=== PATIENT | male | born 1940 | race African-American/Black ===

== ENCOUNTER 2017-11-06 15:20 | Inpatient (IN) | payer MEDICARE, MEDICAID ==
[2017-11-06] VITALS (8 sets, daily range): BP systolic 137–159; BP diastolic 76–87
[~2017-11-06] VITALS: Ht 170.2 cm; Wt 73.3 kg
[~2017-11-06 15:20] MED LIST: HYDR25TA9 PO
--- NOTE | 2017-11-06 15:38 | RAD ---
CT of the head without contrast, 11/06/2017: History: Possible stroke, facial droop Comparison is made to a study from 06/19/2017. There is moderate cerebral atrophy. There are moderate patchy lucencies in the deep white matter bilaterally compatible with chronic ischemic change. There is a tiny focus of increased density in the left frontal deep white matter which is unchanged and is compatible with a nonspecific calcification. The ventricles are mildly enlarged on a compensatory basis. There is no shift of the midline structures. There is no evidence of acute intracranial hemorrhage or mass effect. IMPRESSION: 1. Chronic findings as described above. 2. No acute intracranial abnormality is detected.. Note: The findings were called to personnel in the [facility] ER at 3:34 PM on 11/06/2017. PQRS Compliance Statement: One or more of the following individualized dose reduction techniques were utilized for this examination: 1. Automated exposure control 2. Adjustment of the mA and/or kV according to patient size 3. Use of iterative reconstruction technique
--- NOTE | 2017-11-06 15:38 | EKG ---
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
[2017-11-06] MEDS ORDERED: IOHEXOL 300 MG/ML 100ML VIAL. IV ONE (15:45)
[2017-11-06] MEDS ORDERED: CONTRAST GIVEN MC PRN (16:00)
[2017-11-06 16:05] LABS: BASO # 0.1 x10^3/uL (0.0-0.2); BASO % 1 % (0-3); EOS % 3 % (0-3); HEMATOCRIT 34.6 % (39.0-53.0); HEMOGLOBIN 10.9 g/dL (13.0-17.5); LYMPH # 1.6 x10^3/uL (1.0-4.8); LYMPH % 22 % (24-48); MEAN CORPUSCULAR HEMOGLOBIN 27 pg (25-35); MEAN CORPUSCULAR HGB CONC 32 g/dL (31-37); MEAN CORPUSCULAR VOLUME 84 fL (79-100); MONO % 11 % (0-9); NEUT % 64 % (31-73); PLATELET COUNT 316 x10^3/uL (140-400); RED BLOOD COUNT 4.11 x10^6/uL (4.30-5.70); RED CELL DISTRIBUTION WIDTH 19.4 % (11.5-14.5); WHITE BLOOD COUNT 7.3 x10^3/uL (4.0-11.0)
[2017-11-06 16:15] LABS: INR 1.2 (0.8-1.1)
[2017-11-06 16:16] LABS: CALCIUM 9.2 mg/dL (8.5-10.1); CREATININE 0.9 mg/dL (0.7-1.3); GFR 99.3; POTASSIUM 4.1 mmol/L (3.5-5.1)
--- NOTE | 2017-11-06 16:22 | RAD ---
Single view of the Chest 11/06/2017 5:22 PM Indication: Cerebrovascular accident Comparison: None Findings: The patient is rotated. Allowing for this there is no focal consolidation or infiltrate identified. There is no effusion or pneumothorax. Heart size appears to be within normal limits. No osseous abnormality is identified. Impression: No evidence of acute cardiopulmonary process.
--- NOTE | 2017-11-06 17:22 | PHYS DOC ---
Past Medical History Past Medical History: Diabetes-Type II, High Cholesterol, Hypertension, Seizure , Stroke Past Surgical History: Other Additional Past Surgical Histo: j tube, trach Alcohol Use: None Drug Use: None Adult General Chief Complaint Chief Complaint: ALTERED MENTAL STATUS HPI HPI Patient is a 77 year old M who presents with strokelike symptoms. Patient was transferred as a stroke alert. Approximately one hour prior to arrival the patient had a possible seizure with some dysarthria and left-sided weakness. Patient had a previous stroke with residual left-sided weakness. Daughter was present at bedside witnessed the seizure. Upon arrival the patient was post ictal with some dysarthria. Initial NIH score was 23. Review of Systems Review of Systems ROS is limited secondary to patient's clinical condition All other systems were reviewed and found to be within normal limits, except as documented in this note. Current Medications Current Medications Current Medications Medications (Trade) Dose Ordered Sig/Cathy Start Time Stop Time Status Last Admin Dose Admin Info (Do NOT chart on this entry -- for MONITORING) 1 each PRN DAILY PRN 11/06/17 16:00 11/08/17 15:59 Iohexol (Omnipaque 300 Mg/ml) 75 ml 1X ONCE 11/06/17 15:45 11/06/17 15:48 DC Allergies Allergies Allergies Coded Allergies Type Severity Reaction Last Updated Verified No Known Drug Allergies 06/11/16 No Physical Exam Physical Exam GEN.: Moderate distress. Alert and oriented x1 HEENT: Head is normocephalic, atraumatic, pupils were equal and reactive bilaterally, extraocular muscles are intact bilaterally NECK: Supple. LUNGS: CTAB. HEART: RRR, S1, S2 present. Peripheral pulses intact ABDOMEN: Soft, nontender. Positive bowel sounds. EXTREMITIES: Without any cyanosis 3/5 muscle strength to the proximal and distal left upper extremity and lower extremity NEUROLOGIC: Dysarthria, no identifiable facial droop noted PSYCHIATRIC: Confused SKIN: No ulcerations Current Patient Data Vital Signs Vital Signs Date Time Temp Pulse Resp B/P (MAP) Pulse Ox O2 Delivery O2 Flow Rate FiO2 11/06/17 15:20 98.5 80 20 179/95 (123) 97 Room Air 98.5 Lab Values Laboratory Tests Test 11/06/17 15:50 White Blood Count 7.3 x10^3/uL (4.0-11.0) Red Blood Count 4.11 x10^6/uL (4.30-5.70) L Hemoglobin 10.9 g/dL (13.0-17.5) L Hematocrit 34.6 % (39.0-53.0) L Mean Corpuscular Volume 84 fL (79-100) Mean Corpuscular Hemoglobin 27 pg (25-35) Mean Corpuscular Hemoglobin Concent 32 g/dL (31-37) Red Cell Distribution Width 19.4 % (11.5-14.5) H Platelet Count 316 x10^3/uL (140-400) Neutrophils (%) (Auto) 64 % (31-73) Lymphocytes (%) (Auto) 22 % (24-48) L Monocytes (%) (Auto) 11 % (0-9) H Eosinophils (%) (Auto) 3 % (0-3) Basophils (%) (Auto) 1 % (0-3) Neutrophils # (Auto) 4.6 x10^3uL (1.8-7.7) Lymphocytes # (Auto) 1.6 x10^3/uL (1.0-4.8) Monocytes # (Auto) 0.8 x10^3/uL (0.0-1.1) Eosinophils # (Auto) 0.2 x10^3/uL (0.0-0.7) Basophils # (Auto) 0.1 x10^3/uL (0.0-0.2) Prothrombin Time 14.0 SEC (11.7-14.0) Prothrombin Time INR 1.2 (0.8-1.1) H PTT 29 SEC (24-38) Sodium Level 139 mmol/L (136-145) Potassium Level 4.1 mmol/L (3.5-5.1) Chloride Level 103 mmol/L (98-107) Carbon Dioxide Level 27 mmol/L (21-32) Anion Gap 9 (6-14) Blood Urea Nitrogen 25 mg/dL (8-26) Creatinine 0.9 mg/dL (0.7-1.3) Estimated GFR (Cockcroft-Gault) 99.3 Glucose Level 103 mg/dL (70-99) H Calcium Level 9.2 mg/dL (8.5-10.1) Laboratory Tests 11/06/17 15:50 Laboratory Tests 11/06/17 15:50 EKG EKG 1530: EKG shows normal sinus rhythm rate of 82 no STEMI[] Radiology/Procedures Radiology/Procedures CT scan of the head NAD CX-ray NAD[] Course & Med Decision Making Course & Med Decision Making Pertinent Labs and Imaging studies reviewed. (See chart for details) ED course: Patient was seen and examined emergency room stroke alert was called out and stroke workup was done Radiologist called report of CT the head unremarkable no acute findings 1550: Discussed CC/HP/PMH with Dr. MUELLER and recommends explaining the pros and cons to the patient and family and allowed and decide if TPA is needed 1605: I had a long discussion with the family in regards to the pros and cons of TPA in the criteria for TPA after discussion the family is decided not to give TPA understanding all risks, family wanted the patient transferred to since he was just recently discharged from their 1615: Discussed CC/HP/PMH with Dr. Clark and recommends no TPA and to call through the transfer line for general neurology acceptance 1621: Discussed CC/HP/PMH with transfer center and will call back 1645: Discussed CC/HP/PMH with Dr. Solis and recommends increasing the Keppra to 1500 mg twice a day and discharge the patient home, did not believe the patient needed to be transferred to 1650: Discussed this plan with the patient and family who are very upset and did not think the patient needs to be transferred home 1706: Discussed CC/HP/PMH with Dr. Pickard and recommends admit [] [] Patient's actual PCP is 1722: Discussed CC/HP/PMH with Dr. Ahumada and recommends admit [] MDM: After reviewing the chart, CC/HPI/PMH, physical exam, [lab results], [ radiological results], I believe the patient had a seizure with Raymond's paralysis and do not believe the patient had an acute stroke. Patient will be admitted for further evaluation and management and will obtain an MRI. [] Dragon Disclaimer Dragon Disclaimer This electronic medical record was generated, in whole or in part, using a voice recognition dictation system. Departure Departure Impression: Primary Impression: Seizure Additional Impression: Raymond's paralysis (postepileptic) Disposition: 09 ADMITTED INPATIENT Admitting Physician: Gumaro Ahumada Condition: IMPROVED Referrals: GUMARO AHUMADA MD (PCP) Problem Qualifiers PAULETTE MATHUR DO Nov 06, 2017 17:22
[2017-11-06] MEDS ORDERED: ONDANSETRON PF 4 MG/2 ML VIAL. IV PRN (18:00)
[2017-11-06] MEDS ORDERED: fentaNYL PF VIAL 100 MCG/2 ML VIAL IV PRN (18:00)
[2017-11-06] MEDS ORDERED: ASPIRIN 325 MG TABLET PO ONE (18:45)
--- NOTE | 2017-11-06 19:01 | PDOC2 ---
NEUROLOGY CONSULT Date of Admission Date of Admission DATE: 11/06/17 TIME: 18:41 Reason for Consult Reason for Consult: IMPRESSION: Seizure with Raymond's palsy vs acute CVA. Metabolic encephalopathy. Hx of seizure. Hx of seizure and CVA in 04/09 with left side weakness per his daughter. DM HTN HLD RECOMMENDATIONS/PLAN: Brain MRI w/wo contrast plus seizure protocol. EEG Resume his AEDs. Discussed with his family by ER physician in all detail about deferential diagnoses about CVA syndrome and seizure. TPA for possible acute CVA, but family did not want to TPA. Treat medical diseases. OT/PT HISTORY OF THE PRESENT ILLNESS: 77-y-old AA male patient with above medical diseases had a seizure and CVA symptoms in 04/09 per his daughter. He was seen in [facility] and was thought seizure, but then found CVA. We do not have his medical records at the present time from . His daughter stated that he has been treated for his seizure since. He has about 1 seizure a month or two. He had another seizure observed by his daughter today described as LOC, eyes open and fixed with shaking movements in hands. His left side was weakness. He was brought to the ER of [facility]. TPA was offered due to his symptoms of speech difficulties, MS changes, increased weakness in left side, but his family declined. PAST MEDICAL HISTORY: Diabetes-Type II, High Cholesterol, Hypertension, Seizure, Stroke. PAST SURGERY HISTORY: J tube placement. ALLERGY: Reviewed. MEDICATIONS: Refer to [facility] FAMILY HISTORY: Non contributory. SOCIAL HISTORY: Lives in nursing care facility now. Denies current smoking, drinking, and illicit drug use. REVIEW OF SYSTEMS: Constitutional: No malnutrition, weight loss, cachexia. Head: No traumatic brain or head injury. Skin: No edema, or rash. Ear: No infection. Eyes: No vision loss or color blindness. Nose: No bleeding or purulent discharges. Hearing: Hearing decrease. Neck: No injury. Cardiac: HTN, HLD. Pulmonary: No COPD. GI: No GI ulcer, GI bleeding. Urinary/genital: UTI. Endocrinologic: Diabetes Mellitus. Skeletomuscular: left side weakness. Neurological: see Seizure with CVA in 04/09 per his daughter. Psychiatric: Denies drug use/abuse. Otherwise, not -cutfv review of systems. PHYSICAL EXAMINATION: General appearance is in acute distress. HEENT: Normocephalic and nontraumatic. Eyes, nose, ears, and throat are unremarkable. Neck is supple. No lymphadenopathy. No crepitus. Cardiovascular: S1, S2, regular rate and rhythm. Pulmonary: Clear to auscultation bilaterally. Abdomen: Bowel sounds are positive. Abdomen is soft, nontender, and nondistended. Extremities: No rash, lesions, or edema. No restriction of range of motion NEUROLOGICAL EXAMINATION: Awake. Confusion. Not oriented to time, but knows place and person. PERRL. EOMI. CN: no acute focal findings. Muscle tone: left UE increased, the rest is within normal. Muscle strength: 4 left UE, 5- the rest. DTR: 1-2 Plantar reflex: Neutral response bilaterally Gait: not examined in bed. Sensory exam: no acute abnormal findings. No acute cerebellar signs elicited. F-T-N test fine. Current Medications Current Medications Current Medications Iohexol (Omnipaque 300 Mg/ml) 75 ml 1X ONCE IV ; Start 11/06/17 at 15:45; Stop 11/06/17 at 15:48; Status DC Info (Do NOT chart on this entry -- for MONITORING) 1 each PRN DAILY PRN MC SEE COMMENTS; Start 11/06/17 at 16:00; Stop 11/08/17 at 15:59 Ondansetron HCl (Zofran) 4 mg PRN Q8HRS PRN IV NAUSEA/VOMITING; Start at 18:00; Stop 11/07/17 at 17:59 Fentanyl Citrate (Fentanyl 2ml Vial) 50 mcg PRN Q1HR PRN IV PAIN; Start at 18:00; Stop 11/07/17 at 17:59 Active Scripts Active Hydrochlorothiazide Tablet (Hydrochlorothiazide) 25 Mg Tablet 1 Tab PO DAILY Allergies Allergies: Coded Allergies: No Known Drug Allergies (Unverified , 06/11/16) Vitals VITALS Vital Signs Date Time Temp Pulse Resp B/P (MAP) Pulse Ox O2 Delivery O2 Flow Rate FiO2 11/06/17 17:54 79 97 11/06/17 15:20 98.5 20 179/95 (123) Room Air 98.5 Labs Labs Laboratory Tests Test 11/06/17 15:50 White Blood Count 7.3 x10^3/uL (4.0-11.0) Red Blood Count 4.11 x10^6/uL (4.30-5.70) Hemoglobin 10.9 g/dL (13.0-17.5) Hematocrit 34.6 % (39.0-53.0) Mean Corpuscular Volume 84 fL (79-100) Mean Corpuscular Hemoglobin 27 pg (25-35) Mean Corpuscular Hemoglobin Concent 32 g/dL (31-37) Red Cell Distribution Width 19.4 % (11.5-14.5) Platelet Count 316 x10^3/uL (140-400) Neutrophils (%) (Auto) 64 % (31-73) Lymphocytes (%) (Auto) 22 % (24-48) Monocytes (%) (Auto) 11 % (0-9) Eosinophils (%) (Auto) 3 % (0-3) Basophils (%) (Auto) 1 % (0-3) Neutrophils # (Auto) 4.6 x10^3uL (1.8-7.7) Lymphocytes # (Auto) 1.6 x10^3/uL (1.0-4.8) Monocytes # (Auto) 0.8 x10^3/uL (0.0-1.1) Eosinophils # (Auto) 0.2 x10^3/uL (0.0-0.7) Basophils # (Auto) 0.1 x10^3/uL (0.0-0.2) Prothrombin Time 14.0 SEC (11.7-14.0) Prothromb Time International Ratio 1.2 (0.8-1.1) Activated Partial Thromboplast Time 29 SEC (24-38) Sodium Level 139 mmol/L (136-145) Potassium Level 4.1 mmol/L (3.5-5.1) Chloride Level 103 mmol/L (98-107) Carbon Dioxide Level 27 mmol/L (21-32) Anion Gap 9 (6-14) Blood Urea Nitrogen 25 mg/dL (8-26) Creatinine 0.9 mg/dL (0.7-1.3) Estimated GFR (Cockcroft-Gault) 99.3 Glucose Level 103 mg/dL (70-99) Calcium Level 9.2 mg/dL (8.5-10.1) Laboratory Tests Test 12/14/17 15:50 White Blood Count 7.3 x10^3/uL (4.0-11.0) Red Blood Count 4.11 x10^6/uL (4.30-5.70) Hemoglobin 10.9 g/dL (13.0-17.5) Hematocrit 34.6 % (39.0-53.0) Mean Corpuscular Volume 84 fL (79-100) Mean Corpuscular Hemoglobin 27 pg (25-35) Mean Corpuscular Hemoglobin Concent 32 g/dL (31-37) Red Cell Distribution Width 19.4 % (11.5-14.5) Platelet Count 316 x10^3/uL (140-400) Neutrophils (%) (Auto) 64 % (31-73) Lymphocytes (%) (Auto) 22 % (24-48) Monocytes (%) (Auto) 11 % (0-9) Eosinophils (%) (Auto) 3 % (0-3) Basophils (%) (Auto) 1 % (0-3) Neutrophils # (Auto) 4.6 x10^3uL (1.8-7.7) Lymphocytes # (Auto) 1.6 x10^3/uL (1.0-4.8) Monocytes # (Auto) 0.8 x10^3/uL (0.0-1.1) Eosinophils # (Auto) 0.2 x10^3/uL (0.0-0.7) Basophils # (Auto) 0.1 x10^3/uL (0.0-0.2) Prothrombin Time 14.0 SEC (11.7-14.0) Prothromb Time International Ratio 1.2 (0.8-1.1) Activated Partial Thromboplast Time 29 SEC (24-38) Sodium Level 139 mmol/L (136-145) Potassium Level 4.1 mmol/L (3.5-5.1) Chloride Level 103 mmol/L (98-107) Carbon Dioxide Level 27 mmol/L (21-32) Anion Gap 9 (6-14) Blood Urea Nitrogen 25 mg/dL (8-26) Creatinine 0.9 mg/dL (0.7-1.3) Estimated GFR (Cockcroft-Gault) 99.3 Glucose Level 103 mg/dL (70-99) Calcium Level 9.2 mg/dL (8.5-10.1) AMI,FERILYN MD Nov 06, 2017 19:01
[2017-11-06] MEDS ORDERED: GADOBUTROL 7.5 MMOL/7.5 ML VIAL IV ONE (22:00)
[2017-11-06] MEDS ORDERED: DEXTROSE 50% 25 GM / 50ML DISP.SYRIN. IV PRN (22:15)
[2017-11-06] MEDS: levETIRAcetam 500 MG in IV DEXTROSE 5% 100 ML IV SCH (22:30)
--- NOTE | 2017-11-06 23:02 | RAD ---
Brain MRI, With and Without Contrast: History: Seizures possible CVA Technique: Multiplanar and multisequence imaging of the brain was performed, before and after the administration of 7 cc of IV gadovist contrast. Diffusion weighted sequences were performed. Findings: There is no mass effect or extraaxial fluid collections. There is moderate ventriculomegaly. There is encephalomalacia in the right occipital parietal lobe. There is moderate diffuse cerebral atrophy. There is moderate patchy white matter signal abnormality in the periventricular and subcortical white matter with high signal on T2 in the low to intermediate signal on T1. Diffusion weighted sequences demonstrate no imaging evidence of acute ischemia. There is no mass. There is no gross bleed. There is no abnormal enhancement. Impression: 1. Moderate diffuse age expected atrophy. Ventriculomegaly is felt to be secondary to atrophy. 2. Moderate diffuse white matter disease is nonspecific but likely secondary to chronic small vessel disease. 3. Old right occipital parietal lobe infarct. No acute findings. Electronically signed by: Thomas Salinas III, MD (11/06/2017 10:59 PM) [facility]
[2017-11-06] MEDS ORDERED: SPIR1TAB PO (23:16)
[2017-11-06] MEDS ORDERED: HYDR-971 PO (23:16)
[2017-11-06] MEDS ORDERED: MENT118G TP (23:16)
[2017-11-06] MEDS ORDERED: HYDR-2868 PO (23:16)
[2017-11-06] MEDS ORDERED: ACET325C PO (23:16)
[2017-11-06] MEDS ORDERED: ALBU2.5V14 NEB (23:16)
[2017-11-06] MEDS ORDERED: MELA3TAB2 PO (23:16)
[2017-11-06] MEDS ORDERED: L. R1CAP2 PO (23:16)
[2017-11-06] MEDS ORDERED: ZINC220C5 PO (23:16)
[2017-11-07] VITALS (20 sets, daily range): BP systolic 99–150; BP diastolic 56–94
[2017-11-07] MEDS: LACOSAMIDE 50 MG TABLET PO SCH ×3 (00:29→21:55)
[2017-11-07 04:45] LABS: BASO # 0.1 x10^3/uL (0.0-0.2); BASO % 1 % (0-3); EOS % 3 % (0-3); HEMATOCRIT 30.8 % (39.0-53.0); HEMOGLOBIN 9.8 g/dL (13.0-17.5); LYMPH # 1.4 x10^3/uL (1.0-4.8); LYMPH % 22 % (24-48); MEAN CORPUSCULAR HEMOGLOBIN 27 pg (25-35); MEAN CORPUSCULAR HGB CONC 32 g/dL (31-37); MEAN CORPUSCULAR VOLUME 83 fL (79-100); MONO % 15 % (0-9); NEUT % 58 % (31-73); PLATELET COUNT 265 x10^3/uL (140-400); RED CELL DISTRIBUTION WIDTH 19.1 % (11.5-14.5); WHITE BLOOD COUNT 6.1 x10^3/uL (4.0-11.0)
[2017-11-07 04:59] LABS: CHOLESTEROL/HDL RATIO 2.8
[2017-11-07 05:01] LABS: ALBUMIN 2.9 g/dL (3.4-5.0); ALBUMIN/GLOBULIN RATIO 0.6 (1.0-1.7); CALCIUM 8.9 mg/dL (8.5-10.1); CREATININE 0.8 mg/dL (0.7-1.3); GFR 113.7; POTASSIUM 3.7 mmol/L (3.5-5.1); TOTAL BILIRUBIN 0.3 mg/dL (0.2-1.0); TOTAL PROTEIN 7.6 g/dL (6.4-8.2)
[2017-11-07] MEDS ORDERED: IPRA0.2S5 IH (07:51)
[2017-11-07] MEDS ORDERED: BUDE0.253 NEB (07:51)
[2017-11-07] MEDS ORDERED: CARV25TA2 PO (07:51)
[2017-11-07] MEDS ORDERED: ASPI325T8 PO (07:51)
[2017-11-07] MEDS ORDERED: DOCU50LI PO (07:51)
[2017-11-07] MEDS ORDERED: ARFO15VI IH (07:51)
[2017-11-07] MEDS ORDERED: AMLO10TA2 PO (07:51)
[2017-11-07] MEDS ORDERED: FERR15DR PO (07:51)
[2017-11-07] MEDS ORDERED: GABA300S PO (07:51)
[2017-11-07] MEDS ORDERED: CARB15DR3 EACHEYE (07:51)
[2017-11-07] MEDS ORDERED: VENL37.56 PO (07:51)
[2017-11-07] MEDS ORDERED: TERA2CAP3 PO (07:51)
[2017-11-07] MEDS ORDERED: METF500T4 PO (07:51)
[2017-11-07] MEDS ORDERED: MODA100T2 PO (07:51)
[2017-11-07] MEDS ORDERED: LISI40TA PO (07:51)
[2017-11-07] MEDS ORDERED: ATOR10TA PO (07:51)
[2017-11-07] MEDS ORDERED: ZINC220C5 PO (07:51)
[2017-11-07] MEDS ORDERED: MAGN2400 PO (07:51)
[2017-11-07] MEDS ORDERED: CHLO15MO2 PO (07:51)
[2017-11-07] MEDS ORDERED: PANTOPRAZOLE (07:51)
[2017-11-07] MEDS: INSULIN ASPART 300 UNITS/3 ML INSULN.PEN SQ SCH ×3 (08:00→17:16)
[2017-11-07] MEDS: levETIRAcetam 500 MG in IV DEXTROSE 5% 100 ML IV SCH ×2 (08:45→21:50)
[2017-11-07] MEDS ORDERED: DOCUSATE 100 MG/10 ML SOLUTION. PO PRN (09:45)
[2017-11-07] MEDS: ASPIRIN 325 MG TABLET PO SCH (10:14)
[2017-11-07] MEDS: LACTOBACILLUS RHAMNOSUS GG 1 CAPSULE. PO SCH ×2 (10:14→21:50)
[2017-11-07] MEDS: SPIRONOLACTONE 25 MG TABLET PO SCH (10:15)
[2017-11-07] MEDS: CARVEDILOL 12.5 MG TABLET. PO SCH ×2 (10:15→17:00)
[2017-11-07] MEDS: PANTOPRAZOLE IV PUSH 40 MG VIAL. IVP SCH (10:16)
[2017-11-07] MEDS: LISINOPRIL 40 MG TABLET. PO SCH (10:16)
--- NOTE | 2017-11-07 10:28 | PDOC ---
Provider Note Provider Note Pt seen in ICU. spoke with pts daughter , who is at bed side. #[id number] CANDACE AHUMADA MD Nov 07, 2017 10:28
[2017-11-07] MEDS: ZINC SULFATE 220 MG CAPSULE. PO SCH (10:30)
[2017-11-07] MEDS: amLODIPine BESYLATE 10 MG TABLET PO SCH (10:30)
[2017-11-07] MEDS ORDERED: LISINOPRIL 40 MG TABLET. PO SCH (11:00)
[2017-11-07] MEDS: hydroCHLOROthiazide 25 MG TABLET PO SCH (11:00)
[2017-11-07] MEDS ORDERED: ASPIRIN 325 MG TABLET PO SCH (11:00)
[2017-11-07] MEDS ORDERED: hydrALAZINE 25 MG TABLET PO SCH (11:00)
[2017-11-07] MEDS ORDERED: amLODIPine BESYLATE 10 MG TABLET PO SCH (11:00)
[2017-11-07] MEDS ORDERED: ZINC SULFATE 220 MG CAPSULE. PO SCH (11:00)
--- NOTE | 2017-11-07 11:09 | HP ---
ADMIT DATE: 11/06/2017 LOCATION: ICU 114 REASON FOR ADMISSION TO THE HOSPITAL: Mental status changes, stroke versus postictal. HISTORY OF PRESENT ILLNESS: The patient has history of previous stroke 6 months ago and he also has history of seizures, has been in and out of and multiple hospitalizations lately and last time, he has been at the healthcare facility opposite to [facility]. Yesterday, he was noticed to have change in mental status and was not following commands and has been slightly weaker than usual and the patient was brought to [place]. ER spoke with , but they refused transfer, they did not recommend anything major at this time except increased Keppra dose. The patient has history of seizures. He was on Dilantin, had side effects from that, so he was on Vimpat 200 b.i.d. and Keppra 1000 twice daily. PAST MEDICAL HISTORY: The patient, I had known him for the last couple of years and has not seen him in last 6 months, has been at , [place] and different places. He has history of diabetes, hypertension, coronary artery disease, prostate cancer, also had a history of anxiety and depression. He had sustained a stroke a couple of months ago. He also had respiratory failure, tracheostomy, was on vent, was successfully extubated, tracheostomy was closed. Stroke affected his left side of his body. Right now, he is in wheelchair level. PAST SURGICAL HISTORY: The patient had a J-tube placed and a tracheostomy, which was closed. Surgery done for prostate cancer, I believe. ALLERGIES: No known drug allergies. The patient had bleeding with Plavix. The patient is on aspirin now. MEDICATIONS: He is eating mechanical soft diet, breathing treatments, DuoNeb 4 times daily, amlodipine 10 mg daily, aspirin 325 daily, atorvastatin 10 mg daily, Pulmicort twice a day, eyedrops, Coreg 25 mg twice a day, Peridex oral care, Colace 50 mg daily, gabapentin 300 mg at bedtime, hydralazine 75 mg 3 times daily, hydrochlorothiazide 25 mg daily, hydrocodone 5/325 q.6, lisinopril 40 mg daily, melatonin 3 mg daily, metformin 500 mg twice a day, modafinil and this for his narcolepsy at 100 mg daily, terazosin 2 mg daily for prostate, venlafaxine 37.5 two tablets at bedtime and zinc 220 mg daily. PERSONAL HISTORY: Ex-smoker. Denies alcohol. Denies any street drugs. The patient is on pain medications. FAMILY HISTORY: Positive for heart disease in the brother, diabetes and strokes. REVIEW OF SYMPTOMS: The patient says 1 word answers. The patient's daughter is at bedside, recognized my name. He knows he is in the hospital, does not know exactly the name of the hospital. PHYSICAL EXAMINATION: VITAL SIGNS: At the time of admission shows temperature 98, pulse 80, respirations 20, blood pressure 179/95, 97 on room air. HEENT: Head is atraumatic. Pupils are reactive, equal. Oral cavity: No congestion. NECK: Supple, has a scar of tracheostomy which is closed. CHEST: Symmetrical. CARDIOVASCULAR: S1, S2. LUNGS: Clear breath sounds. ABDOMEN: Soft. The patient has a scar in the midline from J-tube placement. J-tube is present. Soft, no mass palpable. EXTERNAL GENITALIA: No Travis, has briefs. External genitalia deferred. EXTREMITIES: The patient is weak on the left, not able to move the left leg, able to lift the right leg off the bed with some effort. Right hand squeeze 4/5, left 3/5. NEUROLOGIC: Cranial nerves were intact. As mentioned, the patient is oriented to person, recognizes my name and he knows he is in the hospital, but does not know the name of the hospital. LABORATORY DATA: Shows a white count of 7, hemoglobin 11, platelets 316. INR 1.2. Electrolytes show sodium 139, potassium 4.1, chloride 103, bicarbonate 27, BUN 25 and creatinine 0.9, glucose 103. Cholesterol is 130, LDL 61. TSH 0.6. INR 1.2. Chest x-ray negative. CT head negative for stroke. MRI of the brain shows old right occipital parietal infarct, no acute CVA, has diffuse atrophy with ventriculomegaly. FINAL IMPRESSION: 1. Change in mental status, looks like more of a postictal change rather any new stroke. 2. MRI shows only old stroke. No new stroke. 3. History of previous cerebrovascular accident. 4. Coronary artery disease. 5. Hypertension. 6. Diabetes. 7. Hyperlipidemia. 8. History of prostate cancer. 9. J-tube for medications and also history of tracheostomy, which was closed. PLAN: At this time, the patient is admitted to the ICU for close observation, seen by Neurology scheduled for EEG. Resume home medications, he is on Keppra IV as well as Vimpat, monitor for seizures. Resume his home medications and see how the patient's condition. I spoke with the patient's daughter, who was at bedside, requesting speech and video swallow, we will do that and also physical therapy. CANDACE AHUMADA MD DR: BARB/keshav JOB#: [id number] / [id number]
[2017-11-07] MEDS ORDERED: CARVEDILOL 12.5 MG TABLET. PO SCH (11:30)
[2017-11-07] MEDS: DOCUSATE 100 MG/10 ML SOLUTION. PO SCH (11:46)
[2017-11-07] MEDS: CHLORHEXIDINE 0.12% 15 ML MOUTHWASH. MM SCH ×2 (11:46→21:50)
[2017-11-07] MEDS: POLYVINYL ALCOHOL 1.4% OPHTH SOLUTION 15ML BOTTLE. OU SCH ×4 (11:46→21:50)
[2017-11-07] MEDS: ENOXAPARIN 40 MG/0.4 ML SYRINGE. SQ SCH (11:47)
[2017-11-07] MEDS ORDERED: NON FORMULARY ITEM (Albuterol Sulfate (Albuterol Sulfate Conc Neb Soln) 1 VIAL) NEB SCH (12:00)
[2017-11-07] MEDS ORDERED: metFORMIN 500 MG TABLET PO SCH (12:00)
[2017-11-07] MEDS ORDERED: IPRATROPIUM BROMIDE 0.5 MG/2.5 ML NEBU. IH SCH (12:00)
[2017-11-07] MEDS ORDERED: BARIUM SULFATE 40% (APPLE) 148 GM PWD. PO ONE (12:15)
[2017-11-07] MEDS: BUDESONIDE 0.5 MG/2 ML NEBU. NEB SCH ×2 (12:19→20:10)
[2017-11-07] MEDS: IPRATRPIUM/ALBUTEROL 0.5/2.5MG 3 ML NEBU. NEB SCH ×4 (12:19→23:30)
--- NOTE | 2017-11-07 15:28 | RAD ---
Clinical Indication: Dysphagia. Previous stroke. Technique: Current study is dated November 07, 2017. Oropharyngeal swallow evaluation was performed with the speech therapist present with images obtained in the lateral view. Total fluoroscopy time was 2.6 minutes. Image count is 29. Patient was challenged with thin, pudding and mixed consistencies . Findings: There is oral stasis. It would take up to several minutes for the patient to trigger a swallow. There is oral discoordination with a portion of the bolus lost over the base of the tongue. There is pooling in the vallecula. No aspiration or penetration was identified during this exam. Evaluation for aspiration or penetration is limited given severely prolonged oral pocketing and difficulty imaging the actual swallow. Please see speech therapy notes. Impression: Prolonged oral stasis. No definite aspiration or penetration.
--- NOTE | 2017-11-07 16:34 | PDOC ---
PROGRESS NOTES Assessment Assessment Seizure with left side Raymond's palsy. Metabolic encephalopathy. Hx of seizure. Hx of seizure and CVA in 04/09 with left side weakness per his daughter. DM HTN HLD No evidence of acute CVA this time. RECOMMENDATIONS/PLAN: Brain MRI w/wo contrast plus seizure protocol. EEG Resume his AEDs Keppra and Vimpat. Continue ASA 325 mfg daily. Continue Lipitor HS. Treat medical diseases. OT/PT Discussed with his daughter at bedside in ER on 11/06 and in ICU on 11/07. HISTORY OF THE PRESENT ILLNESS: 77-y-old AA male patient with above medical diseases had a seizure and CVA symptoms in 04/09 per his daughter. He was seen in [facility] and was thought seizure, but then found CVA. We do not have his medical records at the present time from . His daughter stated that he has been treated for his seizure since. He has about 1 seizure a month or two. He had another seizure observed by his daughter today described as LOC, eyes open and fixed with shaking movements in hands. His left side was weakness. He was brought to the ER of [facility]. No seizures since in the hospital. PAST MEDICAL HISTORY: Diabetes-Type II, High Cholesterol, Hypertension, Seizure, Stroke. PAST SURGERY HISTORY: J tube placement. ALLERGY: Reviewed. MEDICATIONS: Refer to [facility] FAMILY HISTORY: Non contributory. SOCIAL HISTORY: Lives in nursing care facility now. Denies current smoking, drinking, and illicit drug use. REVIEW OF SYSTEMS: Constitutional: No malnutrition, weight loss, cachexia. Head: No traumatic brain or head injury. Skin: No edema, or rash. Ear: No infection. Eyes: No vision loss or color blindness. Nose: No bleeding or purulent discharges. Hearing: Hearing decrease. Neck: No injury. Cardiac: HTN, HLD. Pulmonary: No COPD. GI: No GI ulcer, GI bleeding. Urinary/genital: UTI. Endocrinologic: Diabetes Mellitus. Skeletomuscular: left side weakness. Neurological: see Seizure with CVA in 04/09 per his daughter. Psychiatric: Denies drug use/abuse. Otherwise, not [id number] review of systems. PHYSICAL EXAMINATION: General appearance is subacute distress. HEENT: Normocephalic and nontraumatic. Eyes, nose, ears, and throat are unremarkable. Neck is supple. No lymphadenopathy. No crepitus. Cardiovascular: S1, S2, regular rate and rhythm. Pulmonary: Clear to auscultation bilaterally. Abdomen: Bowel sounds are positive. Abdomen is soft, nontender, and nondistended. Extremities: No rash, lesions, or edema. No restriction of range of motion NEUROLOGICAL EXAMINATION: Sleepiness but arousable. Confusion. Not oriented to time, but knows place and person. PERRL. EOMI. CN: no acute focal findings. Muscle tone: left UE increased, the rest is within normal. Muscle strength: 4 left UE, 5- the rest. DTR: 1-2 Plantar reflex: Neutral response bilaterally Gait: not examined in bed. Sensory exam: no acute abnormal findings. No acute cerebellar signs elicited. F-T-N test fine. Objective Objective Vital Signs Date Time Temp Pulse Resp B/P (MAP) Pulse Ox O2 Delivery O2 Flow Rate FiO2 11/07/17 16:00 98.4 64 19 109/62 (78) 98 Room Air 98.4 Intake and Output 11/07/17 07:00 Intake Total 120 ml Balance 120 ml Intake Oral 120 ml # Voids 2 Vitals Signs Vitals VS - Last 72 Hours, by Label Date Time Temp Pulse Resp B/P (MAP) Pulse Ox O2 Delivery O2 Flow Rate FiO2 11/07/17 16:00 98.4 64 19 109/62 (78) 98 Room Air 98.4 11/07/17 16:00 Room Air 11/07/17 15:00 68 16 108/69 (82) 97 Room Air 11/07/17 14:00 84 17 121/70 (87) 96 Room Air 11/07/17 14:00 99/62 11/07/17 13:00 81 19 114/75 (88) 96 Room Air 11/07/17 12:21 98 Room Air 11/07/17 12:00 98.6 69 18 101/61 (74) 96 Room Air 98.6 11/07/17 11:56 Room Air 11/07/17 11:00 99 21 100/56 (71) 95 Room Air 11/07/17 11:00 96/58 11/07/17 10:16 84 119/77 11/07/17 10:16 84 119/77 11/07/17 10:15 77 119/77 11/07/17 10:00 84 20 119/77 (91) 99 Room Air 11/07/17 09:00 89 22 150/86 (107) 99 Room Air 11/07/17 08:00 Room Air 11/07/17 08:00 98.4 76 20 141/94 (110) 99 Room Air 98.4 11/07/17 07:00 70 21 116/74 (88) 98 Room Air 11/07/17 06:00 76 22 114/66 (82) 99 Room Air 11/07/17 05:00 85 22 99/62 (74) 98 Room Air 11/07/17 04:00 Room Air 11/07/17 04:00 97.4 75 13 117/77 (90) 96 Room Air 97.4 11/07/17 03:00 92 22 101/67 (78) 98 Room Air 11/07/17 02:00 80 22 102/59 (73) 94 Room Air 11/07/17 01:00 80 22 111/71 (84) 96 Room Air 11/07/17 00:00 99.3 64 22 119/70 (86) 97 Room Air 99.3 11/06/17 23:00 82 22 145/81 (102) 96 Room Air 11/06/17 22:00 82 22 150/85 (106) 98 Room Air 11/06/17 21:00 80 22 140/87 (104) 98 Room Air 11/06/17 20:00 80 20 147/78 (101) 96 Room Air 11/06/17 19:45 84 20 150/84 (106) 98 Room Air 11/06/17 19:30 76 20 152/76 (101) 98 Room Air 11/06/17 19:15 82 20 159/85 (109) 98 Room Air 11/06/17 19:00 98.8 80 20 137/85 (102) 98 Room Air 98.8 11/06/17 17:54 79 97 11/06/17 17:50 85 97 11/06/17 17:39 62 97 11/06/17 17:24 81 96 11/06/17 17:09 81 96 11/06/17 16:54 83 96 11/06/17 16:39 87 95 11/06/17 16:33 86 94 11/06/17 16:24 79 96 11/06/17 16:09 96 11/06/17 15:54 95 11/06/17 15:39 98 11/06/17 15:37 96 11/06/17 15:20 98.5 80 20 179/95 (123) 97 Room Air 98.5 Laboratory Laboratory Laboratory Tests Test 11/06/17 22:40 11/07/17 04:20 11/07/17 10:14 11/07/17 11:37 Nasal Screen MRSA (PCR) Positive (Negative) White Blood Count 6.1 x10^3/uL (4.0-11.0) Red Blood Count 3.70 x10^6/uL (4.30-5.70) Hemoglobin 9.8 g/dL (13.0-17.5) Hematocrit 30.8 % (39.0-53.0) Mean Corpuscular Volume 83 fL (79-100) Mean Corpuscular Hemoglobin 27 pg (25-35) Mean Corpuscular Hemoglobin Concent 32 g/dL (31-37) Red Cell Distribution Width 19.1 % (11.5-14.5) Platelet Count 265 x10^3/uL (140-400) Neutrophils (%) (Auto) 58 % (31-73) Lymphocytes (%) (Auto) 22 % (24-48) Monocytes (%) (Auto) 15 % (0-9) Eosinophils (%) (Auto) 3 % (0-3) Basophils (%) (Auto) 1 % (0-3) Neutrophils # (Auto) 3.5 x10^3uL (1.8-7.7) Lymphocytes # (Auto) 1.4 x10^3/uL (1.0-4.8) Monocytes # (Auto) 0.9 x10^3/uL (0.0-1.1) Eosinophils # (Auto) 0.2 x10^3/uL (0.0-0.7) Basophils # (Auto) 0.1 x10^3/uL (0.0-0.2) Sodium Level 143 mmol/L (136-145) Potassium Level 3.7 mmol/L (3.5-5.1) Chloride Level 107 mmol/L (98-107) Carbon Dioxide Level 25 mmol/L (21-32) Anion Gap 11 (6-14) Blood Urea Nitrogen 24 mg/dL (8-26) Creatinine 0.8 mg/dL (0.7-1.3) Estimated GFR (Cockcroft-Gault) 113.7 BUN/Creatinine Ratio 30 (6-20) Glucose Level 93 mg/dL (70-99) Calcium Level 8.9 mg/dL (8.5-10.1) Total Bilirubin 0.3 mg/dL (0.2-1.0) Aspartate Amino Transf (AST/SGOT) 27 U/L (15-37) Alanine Aminotransferase (ALT/SGPT) 44 U/L (16-63) Alkaline Phosphatase 82 U/L (46-116) Total Protein 7.6 g/dL (6.4-8.2) Albumin 2.9 g/dL (3.4-5.0) Albumin/Globulin Ratio 0.6 (1.0-1.7) Triglycerides Level 110 mg/dL (0-150) Cholesterol Level 130 mg/dL (0-200) LDL Cholesterol, Calculated 61 mg/dL (0-100) VLDL Cholesterol, Calculated 22 mg/dL (0-40) Non-HDL Cholesterol Calculated 83 mg/dL (0-129) HDL Cholesterol 47 mg/dL (40-60) Cholesterol/HDL Ratio 2.8 Glucose (Fingerstick) 170 mg/dL (70-99) 163 mg/dL (70-99) Medication Medications Current Medications Acetaminophen/ Hydrocodone Bitart (Lortab 5/325) 1 tab PRN Q6HRS PRN PO PAIN; Start 11/07/17 at 10:15 Albuterol/ Ipratropium (Duoneb) 3 ml Q4HRS NEB Last administered on 11/07/17 12:19; Start 11/07/17 at 12:00 Amlodipine Besylate (Norvasc) 10 mg DAILY PO ; Start 11/07/17 at 10:30 Amlodipine Besylate (Norvasc) 10 mg DAILY PO ; Start 11/07/17 at 11:00; Stop 11/07/17 at 13:00; Status DC Artificial Tears (Artificial Tears) 1 drop QID OU Last administered on 14:29; Start 11/07/17 at 10:45 Aspirin (Telematik Aspirin) 325 mg 1X ONCE PO Last administered on 11/07/17 00: 29; Start 11/06/17 at 18:45; Stop 11/06/17 at 19:08; Status DC Aspirin (Aide Aspirin) 325 mg DAILY PO ; Start 11/07/17 at 11:00; Stop at 13:00; Status DC Aspirin (Aide Aspirin) 325 mg DAILYWBKFT PO Last administered on 11/07/17 10 :14; Start 11/07/17 at 10:30 Atorvastatin Calcium (Lipitor) 10 mg QHS PO ; Start 11/07/17 at 21:00; Stop at 21:00; Status DC Atorvastatin Calcium (Lipitor) 40 mg QHS PO ; Start 11/07/17 at 21:00 Barium Sulfate (Varibar Thin Liquid Apple) 148 gm 1X ONCE PO Last administered on 11/07/17 14:12; Start 11/07/17 at 12:15; Stop 11/07/17 at 12 :18; Status DC Budesonide (Pulmicort) 0.5 mg RTBID NEB Last administered on 11/07/17 12:19; Start 11/07/17 at 12:00 Carvedilol (Coreg) 25 mg BIDWMEALS PO Last administered on 11/07/17 10:15; Start 11/07/17 at 10:30 Carvedilol (Coreg) 25 mg BIDWMEALS PO ; Start 11/07/17 at 11:30; Stop at 13:01; Status DC Chlorhexidine Gluconate (Peridex) 15 ml BID MM Last administered on 11/07/17 11:46; Start 11/07/17 at 11:00 Dextrose (Dextrose 50%-Water Syringe) 12.5 gm PRN Q15MIN PRN IV SEE COMMENTS; Start 11/06/17 at 22:15 Docusate Sodium (Colace Solution) 50 mg DAILY PO Last administered on 11:46; Start 11/07/17 at 11:00 Docusate Sodium (Colace Solution) 100 mg PRN DAILY PRN PO CONSTIPATION; Start 11/07/17 at 09:45 Enoxaparin Sodium (Lovenox 40mg Syringe) 40 mg Q24H SQ Last administered on 11:47; Start 11/07/17 at 11:00 Fentanyl Citrate (Fentanyl 2ml Vial) 50 mcg PRN Q1HR PRN IV PAIN; Start at 18:00; Stop 11/07/17 at 17:59 Gabapentin (Neurontin) 300 mg QHS PO ; Start 11/07/17 at 21:00 Gadobutrol (Gadavist) 7 mmol 1X ONCE IV ; Start 11/06/17 at 22:00; Stop 11/06 at 22:01; Status DC Hydralazine HCl (Apresoline) 75 mg TID PO Last administered on 11/07/17 10:16 ; Start 11/07/17 at 10:30 Hydralazine HCl (Apresoline) 75 mg TID PO ; Start 11/07/17 at 11:00; Stop at 13:00; Status DC Hydrochlorothiazide (Hydrodiuril) 25 mg DAILY PO ; Start 11/07/17 at 11:00 Insulin Aspart (NovoLOG) 0-7 UNITS Q6HRS SQ ; Start 11/07/17 at 18:00 Insulin Aspart (NovoLOG) 0-7 UNITS TIDWMEALS SQ Last administered on 11:49; Start 11/07/17 at 08:00; Stop 11/07/17 at 15:17; Status DC Ipratropium [place] (Atrovent) 0.5 mg Q4HRS IH ; Start 11/07/17 at 12:00; Stop 11/07/17 at 12:00; Status DC Lacosamide (Vimpat) 200 mg BID PO Last administered on 11/07/17 08:45; Start 11/07/17 at 00:30 Lactobacillus Rhamnosus (Culturelle) 1 cap BID PO Last administered on 10:14; Start 11/07/17 at 10:30 Levetiracetam 500 mg/Dextrose 105 ml @ 420 mls/hr Q12HR IV Last administered on 11/07/17 08:45; Start 11/06/17 at 21:00 Lisinopril (Prinivil) 40 mg DAILY PO Last administered on 11/07/17 10:16; Start 11/07/17 at 10:30 Lisinopril (Prinivil) 40 mg DAILY PO ; Start 11/07/17 at 11:00; Stop 11/07/17 at 13:00; Status DC Metformin HCl (Glucophage) 500 mg BIDWMEALS PO ; Start 11/07/17 at 12:00; Stop 11/07/17 at 13:01; Status DC Metformin HCl (Glucophage) 500 mg BIDWMEALS PO ; Start 11/09/17 at 08:00 Non-Formulary Medication 1 tab QHS PO ; Start 11/07/17 at 21:00; Stop at 21:00; Status DC Non-Formulary Medication 1 vial BID NEB ; Start 11/07/17 at 21:00; Stop at 21:00; Status DC Non-Formulary Medication 1 vial Q4HRS NEB ; Start 11/07/17 at 12:00; Stop at 12:00; Status DC Non-Formulary Medication 100 mg DAILY PO ; Start 11/08/17 at 09:00; Status UNV Ondansetron HCl (Zofran) 4 mg PRN Q8HRS PRN IV NAUSEA/VOMITING; Start at 18:00; Stop 11/07/17 at 17:59 Pantoprazole Sodium (PROTONIX VIAL for IV PUSH) 40 mg DAILYAC IVP Last administered on 11/07/17 10:16; Start 11/07/17 at 10:30 Spironolactone (Aldactone) 12.5 mg DAILY PO Last administered on 11/07/17 10: 15; Start 11/07/17 at 10:30 Terazosin HCl (Hytrin) 2 mg QHS PO ; Start 11/07/17 at 21:00 Terazosin HCl (Hytrin) 2 mg QHS PO ; Start 11/07/17 at 21:00; Status Cancel Venlafaxine HCl (Effexor) 75 mg HS PO ; Start 11/07/17 at 21:00 Venlafaxine HCl (Effexor) 75 mg QHS PO ; Start 11/07/17 at 21:00; Status Cancel Zinc Sulfate (Orazinc) 220 mg DAILY PO ; Start 11/07/17 at 10:30 Zinc Sulfate (Orazinc) 220 mg DAILY PO Last administered on 11/07/17 11:46; Start 11/07/17 at 11:00; Stop 11/07/17 at 13:01; Status DC Zinc Sulfate (Orazinc) 220 mg DAILY PO ; Start 11/08/17 at 09:00; Stop at 09:00; Status DC Comment Review of Relevant I have reviewed the following items bob (where applicable) has been applied. GURPREET MUELLER MD Nov 07, 2017 16:34
[2017-11-07 18:19] LABS: BARBITURATES NEG (NEG); BENZODIAZEPINES NEG (NEG); CANNABINOIDS NEG (NEG); COCAINE NEG (NEG); METHADONE NEG (NEG); OPIATES NEG (NEG); PHENCYCLIDINE NEG (NEG)
[2017-11-07] MEDS ORDERED: NON FORMULARY ITEM (Melatonin 1 TAB) PO SCH (21:00)
[2017-11-07] MEDS ORDERED: NON FORMULARY ITEM (Budesonide (Pulmicort) 1 VIAL) NEB SCH (21:00)
[2017-11-07] MEDS ORDERED: ATORVASTATIN CALCIUM 10 MG TABLET. PO SCH (21:00)
[2017-11-07] MEDS ORDERED: TERAZOSIN 1 MG CAPSULE. PO SCH (21:00)
[2017-11-07] MEDS ORDERED: VENLAFAXINE 75 MG TABLET. PO SCH (21:00)
[2017-11-07] MEDS: ATORVASTATIN CALCIUM 40 MG TABLET. PO SCH (21:48)
[2017-11-07] MEDS: VENLAFAXINE 50 MG TABLET. PO SCH (21:49)
[2017-11-07] MEDS: TERAZOSIN 1 MG CAPSULE. PO SCH (21:49)
[2017-11-07] MEDS: GABAPENTIN 300 MG CAPSULE. PO SCH (21:54)
[2017-11-07] MEDS: HYDROcodone/APAP 5/325MG 1 TAB TABLET PO PRN (21:55)
[2017-11-08] VITALS (7 sets, daily range): BP systolic 97–171; BP diastolic 54–89
[2017-11-08] MEDS: INSULIN ASPART 300 UNITS/3 ML INSULN.PEN SQ SCH ×4 (00:12→18:00)
[2017-11-08] MEDS: IPRATRPIUM/ALBUTEROL 0.5/2.5MG 3 ML NEBU. NEB SCH ×6 (04:05→23:23)
[2017-11-08] MEDS: CARVEDILOL 12.5 MG TABLET. PO SCH ×2 (08:00→19:18)
[2017-11-08] MEDS ORDERED: NON FORMULARY ITEM (Modafinil 100 MG) PO SCH (09:00)
[2017-11-08] MEDS ORDERED: ZINC SULFATE 220 MG CAPSULE. PO SCH (09:00)
[2017-11-08] MEDS: POLYVINYL ALCOHOL 1.4% OPHTH SOLUTION 15ML BOTTLE. OU SCH ×4 (09:00→21:00)
[2017-11-08] MEDS: BUDESONIDE 0.5 MG/2 ML NEBU. NEB SCH ×2 (09:06→20:11)
[2017-11-08] MEDS: levETIRAcetam 500 MG in IV DEXTROSE 5% 100 ML IV SCH (09:40)
[2017-11-08] MEDS: LACOSAMIDE 50 MG TABLET PO SCH (09:41)
[2017-11-08] MEDS: PANTOPRAZOLE IV PUSH 40 MG VIAL. IVP SCH (09:41)
[2017-11-08] MEDS: CHLORHEXIDINE 0.12% 15 ML MOUTHWASH. MM SCH ×2 (09:41→21:59)
[2017-11-08] MEDS: DOCUSATE 100 MG/10 ML SOLUTION. PO SCH (09:41)
[2017-11-08] MEDS: ASPIRIN 325 MG TABLET PO SCH (09:42)
[2017-11-08] MEDS: amLODIPine BESYLATE 10 MG TABLET PO SCH (09:42)
[2017-11-08] MEDS: LACTOBACILLUS RHAMNOSUS GG 1 CAPSULE. PO SCH ×2 (09:43→22:03)
[2017-11-08] MEDS: hydroCHLOROthiazide 25 MG TABLET PO SCH (09:43)
[2017-11-08] MEDS: LISINOPRIL 40 MG TABLET. PO SCH (09:44)
[2017-11-08] MEDS: ZINC SULFATE 220 MG CAPSULE. PO SCH (09:44)
[2017-11-08] MEDS: SPIRONOLACTONE 25 MG TABLET PO SCH (09:44)
--- NOTE | 2017-11-08 12:12 | PDOC ---
PROGRESS NOTES Subjective Subjective pt more awake talking sentences,knows my name , cannot remember the name of hospital,family at bed side Objective Objective Vital Signs Date Time Temp Pulse Resp B/P (MAP) Pulse Ox O2 Delivery O2 Flow Rate FiO2 11/08/17 11:15 97.6 80 20 171/81 (111) 97 Room Air 97.6 Intake and Output 11/08/17 07:00 Intake Total 625 ml Output Total 250 ml Balance 375 ml Intake Oral 525 ml Other 100 ml Output Urine Total 250 ml # Voids 1 Physical Exam Abdomen: Normal bowel sounds, Soft Heart: Regular rate, Normal S1, Normal S2 Extremities: No edema General: Alert, Cooperative HEENT: Atraumatic Lungs: Clear to auscultation Neck: Supple Neuro: Normal speech Psych/Mental Status: Mood NL COMMENT ltside weakness from prior stroke Diagnosis Problem List Problems Medical Problems: (1) Seizure Status: Acute (2) Raymond's paralysis (postepileptic) Status: Acute Assessment Assessment Problems Medical Problems: (1) Seizure Status: Acute (2) Raymond's paralysis (postepileptic) Status: Acute FINAL IMPRESSION: 1. Change in mental status, looks like more of a postictal change rather any new stroke. 2. MRI shows only old stroke. No new stroke. 3. History of previous cerebrovascular accident. 4. Coronary artery disease. 5. Hypertension. 6. Diabetes. 7. Hyperlipidemia. 8. History of prostate cancer. 9. J-tube for medications and also history of tracheostomy, which was closed. 10 .Seizures on vampet+keppra PLAN: vedio swallow no aspiration ,slow transit. seeing speech therapy.npo for today MRI brain no new cva no more seizures noted. labs ok. tube feedings Problems: Plan Plan of Care Problems Medical Problems: (1) Seizure Status: Acute (2) Raymond's paralysis (postepileptic) Status: Acute Comment Review of Relevant I have reviewed the following items bob (where applicable) has been applied. Labs Laboratory Tests Test 11/07/17 17:05 11/07/17 17:14 11/08/17 00:09 11/08/17 06:32 Urine Opiates Screen Neg (NEG) Urine Methadone Screen Neg (NEG) Urine Barbiturates Neg (NEG) Urine Phencyclidine Screen Neg (NEG) Urine Amphetamine/Methamphetamine Neg (NEG) Urine Benzodiazepines Screen Neg (NEG) Urine Cocaine Screen Neg (NEG) Urine Cannabinoids Screen Neg (NEG) Urine Ethyl Alcohol Neg (NEG) Glucose (Fingerstick) 164 mg/dL (70-99) 199 mg/dL (70-99) 143 mg/dL (70-99) Test 11/08/17 11:35 Glucose (Fingerstick) 152 mg/dL (70-99) Medications Current Medications Atorvastatin Calcium (Lipitor) 10 mg QHS PO ; Start 11/07/17 at 21:00; Stop at 21:00; Status DC Atorvastatin Calcium (Lipitor) 40 mg QHS PO Last administered on 11/07/17 21: 48; Start 11/07/17 at 21:00 Barium Sulfate (Varibar Thin Liquid Apple) 148 gm 1X ONCE PO Last administered on 11/07/17 14:12; Start 11/07/17 at 12:15; Stop 11/07/17 at 12 :18; Status DC Gabapentin (Neurontin) 300 mg QHS PO Last administered on 11/07/17 21:54; Start 11/07/17 at 21:00 Insulin Aspart (NovoLOG) 0-7 UNITS Q6HRS SQ Last administered on 11/08/17 00: 12; Start 11/07/17 at 18:00 Metformin HCl (Glucophage) 500 mg BIDWMEALS PO ; Start 11/09/17 at 08:00 Non-Formulary Medication 1 tab QHS PO ; Start 11/07/17 at 21:00; Stop at 21:00; Status DC Non-Formulary Medication 1 vial BID NEB ; Start 11/07/17 at 21:00; Stop at 21:00; Status DC Non-Formulary Medication 100 mg DAILY PO ; Start 11/08/17 at 09:00; Status UNV Terazosin HCl (Hytrin) 2 mg QHS PO Last administered on 11/07/17 21:49; Start 11/07/17 at 21:00 Terazosin HCl (Hytrin) 2 mg QHS PO ; Start 11/07/17 at 21:00; Status Cancel Venlafaxine HCl (Effexor) 75 mg HS PO Last administered on 11/07/17 21:49; Start 11/07/17 at 21:00 Venlafaxine HCl (Effexor) 75 mg QHS PO ; Start 11/07/17 at 21:00; Status Cancel Zinc Sulfate (Orazinc) 220 mg DAILY PO ; Start 11/08/17 at 09:00; Stop at 09:00; Status DC Vitals/I & O Vital Sign - Last 24 Hours 11/07/17 11/07/17 11/07/17 11/07/17 12:21 13:00 14:00 14:00 Pulse 81 84 Resp 19 17 B/P (MAP) 114/75 (88) 99/62 121/70 (87) Pulse Ox 98 96 96 O2 Delivery Room Air Room Air Room Air 11/07/17 11/07/17 11/07/17 11/07/17 15:00 16:00 16:00 16:44 Temp 98.4 98.4 Pulse 68 64 Resp 16 19 B/P (MAP) 108/69 (82) 109/62 (78) Pulse Ox 97 98 97 O2 Delivery Room Air Room Air Room Air Room Air 11/07/17 11/07/17 11/07/17 11/07/17 17:00 17:00 18:00 20:00 Pulse 65 67 78 Resp 19 18 B/P (MAP) 100/51 119/62 (81) 119/60 (79) Pulse Ox 98 97 O2 Delivery Room Air Room Air Room Air 11/07/17 11/07/17 11/07/17 11/07/17 20:00 20:10 21:48 21:49 Temp 98.6 98.6 Pulse 76 78 73 Resp 20 B/P (MAP) 146/88 (107) 127/79 127/79 Pulse Ox 98 98 O2 Delivery Room Air Room Air 11/07/17 11/07/17 11/07/17 11/08/17 21:55 22:55 23:30 00:00 Temp 98.6 98.6 Pulse 77 Resp 12 23 14 B/P (MAP) 97/54 (68) Pulse Ox 98 96 99 98 O2 Delivery Room Air Room Air Room Air Room Air 11/08/17 11/08/17 11/08/17 11/08/17 04:00 08:00 08:00 09:06 Temp 98.7 97.3 98.7 97.3 Pulse 76 87 83 Resp 12 18 B/P (MAP) 113/75 (88) 167/89 167/89 (115) Pulse Ox 99 100 97 O2 Delivery Room Air Room Air Room Air 11/08/17 11/08/17 11/08/17 11/08/17 09:42 09:43 09:44 11:15 Temp 97.6 97.6 Pulse 87 87 87 80 Resp 20 B/P (MAP) 167/89 167/89 167/89 171/81 (111) Pulse Ox 97 O2 Delivery Room Air Intake and Output 11/07/17 11/07/17 11/08/17 15:00 23:00 07:00 Intake Total 625 ml 0 ml 0 ml Output Total 250 ml Balance 625 ml -250 ml 0 ml Nutrition Consultation Dietary Evaluation: Recommendations by RD: Increase Calorie Intake Comments: REC Diabetisource AC@goal rate 50 ml/hr w/75 ml water flushes q4 hrs or flushes per MD Expected Outcomes/Goals: TF initiated and infusing to meet > 65% est needs Malnutrition Findings: Food and Nutrition Intake (Mod: <75% est energy req 7days Body Fat Depletion (Non Severe: Mild Depletion Weight Status: Appropriate CANDACE AHUMADA MD Nov 08, 2017 12:12
[2017-11-08] MEDS: ENOXAPARIN 40 MG/0.4 ML SYRINGE. SQ SCH (18:48)
--- NOTE | 2017-11-08 21:19 | PDOC ---
PROGRESS NOTES Assessment Problems Medical Problems: (1) Seizure Status: Acute (2) Raymond's paralysis (postepileptic) Status: Acute Problems: Plan Seizure with Raymond's palsy vs acute CVA. Metabolic encephalopathy. Hx of seizure. 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 EEG continue AEDs. NO clinical seizures noted. Treat medical diseases. OT/PT Objective Vital Signs Date Time Temp Pulse Resp B/P (MAP) Pulse Ox O2 Delivery O2 Flow Rate FiO2 11/08/17 20:16 Room Air 11/08/17 19:59 97.9 80 14 112/69 (83) 98 97.9 Intake and Output 11/08/17 07:00 Intake Total 625 ml Output Total 250 ml Balance 375 ml Intake Oral 525 ml Other 100 ml Output Urine Total 250 ml # Voids 1 PHYSICAL EXAM General appearance is in acute distress. HEENT: Normocephalic and nontraumatic. Eyes, nose, ears, and throat are unremarkable. Neck is supple. No lymphadenopathy. No crepitus. Cardiovascular: S1, S2, regular rate and rhythm. Pulmonary: Clear to auscultation bilaterally. Abdomen: Bowel sounds are positive. Abdomen is soft, nontender, and nondistended. Extremities: No rash, lesions, or edema. No restriction of range of motion NEUROLOGICAL EXAMINATION: Awake. Confusion. able to tellplace and person. PERRL. EOMI. CN: no acute focal findings. Muscle tone: left UE increased, the rest is within normal. Muscle strength: slight left UE weakness, otherwise moves all exts DTR: 1-2 Plantar reflex: Neutral response bilaterally Gait: not examined in bed. Sensory exam: no acute abnormal findings. gait in bed. Review of Relevant I have reviewed the following items bob (where applicable) has been applied. Labs Laboratory Tests Test 11/06/17 22:40 11/07/17 04:20 11/07/17 10:14 11/07/17 11:37 Nasal Screen MRSA (PCR) Positive (Negative) White Blood Count 6.1 x10^3/uL (4.0-11.0) Red Blood Count 3.70 x10^6/uL (4.30-5.70) Hemoglobin 9.8 g/dL (13.0-17.5) Hematocrit 30.8 % (39.0-53.0) Mean Corpuscular Volume 83 fL (79-100) Mean Corpuscular Hemoglobin 27 pg (25-35) Mean Corpuscular Hemoglobin Concent 32 g/dL (31-37) Red Cell Distribution Width 19.1 % (11.5-14.5) Platelet Count 265 x10^3/uL (140-400) Neutrophils (%) (Auto) 58 % (31-73) Lymphocytes (%) (Auto) 22 % (24-48) Monocytes (%) (Auto) 15 % (0-9) Eosinophils (%) (Auto) 3 % (0-3) Basophils (%) (Auto) 1 % (0-3) Neutrophils # (Auto) 3.5 x10^3uL (1.8-7.7) Lymphocytes # (Auto) 1.4 x10^3/uL (1.0-4.8) Monocytes # (Auto) 0.9 x10^3/uL (0.0-1.1) Eosinophils # (Auto) 0.2 x10^3/uL (0.0-0.7) Basophils # (Auto) 0.1 x10^3/uL (0.0-0.2) Sodium Level 143 mmol/L (136-145) Potassium Level 3.7 mmol/L (3.5-5.1) Chloride Level 107 mmol/L (98-107) Carbon Dioxide Level 25 mmol/L (21-32) Anion Gap 11 (6-14) Blood Urea Nitrogen 24 mg/dL (8-26) Creatinine 0.8 mg/dL (0.7-1.3) Estimated GFR (Cockcroft-Gault) 113.7 BUN/Creatinine Ratio 30 (6-20) Glucose Level 93 mg/dL (70-99) Hemoglobin A1c 6.2 % (4.8-5.6) Calcium Level 8.9 mg/dL (8.5-10.1) Total Bilirubin 0.3 mg/dL (0.2-1.0) Aspartate Amino Transf (AST/SGOT) 27 U/L (15-37) Alanine Aminotransferase (ALT/SGPT) 44 U/L (16-63) Alkaline Phosphatase 82 U/L (46-116) Total Protein 7.6 g/dL (6.4-8.2) Albumin 2.9 g/dL (3.4-5.0) Albumin/Globulin Ratio 0.6 (1.0-1.7) Triglycerides Level 110 mg/dL (0-150) Cholesterol Level 130 mg/dL (0-200) LDL Cholesterol, Calculated 61 mg/dL (0-100) VLDL Cholesterol, Calculated 22 mg/dL (0-40) Non-HDL Cholesterol Calculated 83 mg/dL (0-129) HDL Cholesterol 47 mg/dL (40-60) Cholesterol/HDL Ratio 2.8 Glucose (Fingerstick) 170 mg/dL (70-99) 163 mg/dL (70-99) Test 11/07/17 17:05 11/07/17 17:14 11/08/17 00:09 11/08/17 06:32 Urine Opiates Screen Neg (NEG) Urine Methadone Screen Neg (NEG) Urine Barbiturates Neg (NEG) Urine Phencyclidine Screen Neg (NEG) Urine Amphetamine/Methamphetamine Neg (NEG) Urine Benzodiazepines Screen Neg (NEG) Urine Cocaine Screen Neg (NEG) Urine Cannabinoids Screen Neg (NEG) Urine Ethyl Alcohol Neg (NEG) Glucose (Fingerstick) 164 mg/dL (70-99) 199 mg/dL (70-99) 143 mg/dL (70-99) Test 11/08/17 11:35 11/08/17 17:11 Glucose (Fingerstick) 152 mg/dL (70-99) 151 mg/dL (70-99) Laboratory Tests Test 11/08/17 00:09 11/08/17 06:32 11/08/17 11:35 11/08/17 17:11 Glucose (Fingerstick) 199 mg/dL (70-99) 143 mg/dL (70-99) 152 mg/dL (70-99) 151 mg/dL (70-99) Medications Current Medications Iohexol (Omnipaque 300 Mg/ml) 75 ml 1X ONCE IV ; Start 11/06/17 at 15:45; Stop 11/06/17 at 15:48; Status DC Info (Do NOT chart on this entry -- for MONITORING) 1 each PRN DAILY PRN MC SEE COMMENTS; Start 11/06/17 at 16:00; Stop 11/08/17 at 15:59; Status DC Ondansetron HCl (Zofran) 4 mg PRN Q8HRS PRN IV NAUSEA/VOMITING; Start at 18:00; Stop 11/07/17 at 17:59; Status DC Fentanyl Citrate (Fentanyl 2ml Vial) 50 mcg PRN Q1HR PRN IV PAIN; Start at 18:00; Stop 11/07/17 at 17:59; Status DC Levetiracetam 500 mg/Dextrose 105 ml @ 420 mls/hr Q12HR IV Last administered on 11/08/17 09:40; Start 11/06/17 at 21:00; Stop 11/08/17 at 12:18; Status DC Aspirin (Aide Aspirin) 325 mg 1X ONCE PO Last administered on 11/07/17 00: 29; Start 11/06/17 at 18:45; Stop 11/06/17 at 19:08; Status DC Gadobutrol (Gadavist) 7 mmol 1X ONCE IV ; Start 11/06/17 at 22:00; Stop 11/06 at 22:01; Status DC Insulin Aspart (NovoLOG) 0-7 UNITS TIDWMEALS SQ Last administered on 11:49; Start 11/07/17 at 08:00; Stop 11/07/17 at 15:17; Status DC Dextrose (Dextrose 50%-Water Syringe) 12.5 gm PRN Q15MIN PRN IV SEE COMMENTS; Start 11/06/17 at 22:15 Lacosamide (Vimpat) 200 mg BID PO Last administered on 11/08/17 09:41; Start 11/07/17 at 00:30 Hydralazine HCl (Apresoline) 75 mg TID PO Last administered on 11/08/17 14:00 ; Start 11/07/17 at 10:30 Spironolactone (Aldactone) 12.5 mg DAILY PO Last administered on 11/08/17 09: 44; Start 11/07/17 at 10:30 Lactobacillus Rhamnosus (Culturelle) 1 cap BID PO Last administered on 09:43; Start 11/07/17 at 10:30 Zinc Sulfate (Orazinc) 220 mg DAILY PO Last administered on 11/08/17 09:44; Start 11/07/17 at 10:30 Metformin HCl (Glucophage) 500 mg BIDWMEALS PO ; Start 11/09/17 at 08:00 Pantoprazole Sodium (PROTONIX VIAL for IV PUSH) 40 mg DAILYAC IVP Last administered on 11/08/17 09:41; Start 11/07/17 at 10:30 Carvedilol (Coreg) 25 mg BIDWMEALS PO Last administered on 11/08/17 19:18; Start 11/07/17 at 10:30 Aspirin (Aide Aspirin) 325 mg DAILYWBKFT PO Last administered on 11/08/17 09 :42; Start 11/07/17 at 10:30 Lisinopril (Prinivil) 40 mg DAILY PO Last administered on 11/08/17 09:44; Start 11/07/17 at 10:30 Terazosin HCl (Hytrin) 2 mg QHS PO Last administered on 11/07/17 21:49; Start 11/07/17 at 21:00 Docusate Sodium (Colace Solution) 100 mg PRN DAILY PRN PO CONSTIPATION; Start 11/07/17 at 09:45 Amlodipine Besylate (Norvasc) 10 mg DAILY PO Last administered on 11/08/17 09 :42; Start 11/07/17 at 10:30 Venlafaxine HCl (Effexor) 75 mg HS PO Last administered on 11/07/17 21:49; Start 11/07/17 at 21:00 Atorvastatin Calcium (Lipitor) 40 mg QHS PO Last administered on 11/07/17 21: 48; Start 11/07/17 at 21:00 Amlodipine Besylate (Norvasc) 10 mg DAILY PO ; Start 11/07/17 at 11:00; Stop 11/07/17 at 13:00; Status DC Aspirin (Aide Aspirin) 325 mg DAILY PO ; Start 11/07/17 at 11:00; Stop at 13:00; Status DC Atorvastatin Calcium (Lipitor) 10 mg QHS PO ; Start 11/07/17 at 21:00; Stop at 21:00; Status DC Chlorhexidine Gluconate (Peridex) 15 ml BID MM Last administered on 11/08/17 09:41; Start 11/07/17 at 11:00 Docusate Sodium (Colace Solution) 50 mg DAILY PO Last administered on 09:41; Start 11/07/17 at 11:00 Hydralazine HCl (Apresoline) 75 mg TID PO ; Start 11/07/17 at 11:00; Stop at 13:00; Status DC Hydrochlorothiazide (Hydrodiuril) 25 mg DAILY PO Last administered on 09:43; Start 11/07/17 at 11:00 Acetaminophen/ Hydrocodone Bitart (Lortab 5/325) 1 tab PRN Q6HRS PRN PO PAIN Last administered on 11/07/17 21:55; Start 11/07/17 at 10:15 Ipratropium [place] (Atrovent) 0.5 mg Q4HRS IH ; Start 11/07/17 at 12:00; Stop 11/07/17 at 12:00; Status DC Lisinopril (Prinivil) 40 mg DAILY PO ; Start 11/07/17 at 11:00; Stop 11/07/17 at 13:00; Status DC Metformin HCl (Glucophage) 500 mg BIDWMEALS PO ; Start 11/07/17 at 12:00; Stop 11/07/17 at 13:01; Status DC Zinc Sulfate (Orazinc) 220 mg DAILY PO Last administered on 11/07/17 11:46; Start 11/07/17 at 11:00; Stop 11/07/17 at 13:01; Status DC Zinc Sulfate (Orazinc) 220 mg DAILY PO ; Start 11/08/17 at 09:00; Stop at 09:00; Status DC Non-Formulary Medication 1 vial Q4HRS NEB ; Start 11/07/17 at 12:00; Stop at 12:00; Status DC Non-Formulary Medication 1 vial BID NEB ; Start 11/07/17 at 21:00; Stop at 21:00; Status DC Artificial Tears (Artificial Tears) 1 drop QID OU Last administered on 09:00; Start 11/07/17 at 10:45 Carvedilol (Coreg) 25 mg BIDWMEALS PO ; Start 11/07/17 at 11:30; Stop at 13:01; Status DC Gabapentin (Neurontin) 300 mg QHS PO Last administered on 11/07/17 21:54; Start 11/07/17 at 21:00 Non-Formulary Medication 1 tab QHS PO ; Start 11/07/17 at 21:00; Stop at 21:00; Status DC Non-Formulary Medication 100 mg DAILY PO ; Start 11/08/17 at 09:00; Status UNV Terazosin HCl (Hytrin) 2 mg QHS PO ; Start 11/07/17 at 21:00; Status Cancel Venlafaxine HCl (Effexor) 75 mg QHS PO ; Start 11/07/17 at 21:00; Status Cancel Enoxaparin Sodium (Lovenox 40mg Syringe) 40 mg Q24H SQ Last administered on 18:48; Start 11/07/17 at 11:00 Albuterol/ Ipratropium (Duoneb) 3 ml Q4HRS NEB Last administered on 11/08/17 20:11; Start 11/07/17 at 12:00 Budesonide (Pulmicort) 0.5 mg RTBID NEB Last administered on 11/08/17 20:11; Start 11/07/17 at 12:00 Barium Sulfate (Varibar Thin Liquid Apple) 148 gm 1X ONCE PO Last administered on 11/07/17 14:12; Start 11/07/17 at 12:15; Stop 11/07/17 at 12 :18; Status DC Insulin Aspart (NovoLOG) 0-7 UNITS Q6HRS SQ Last administered on 11/08/17 00: 12; Start 11/07/17 at 18:00 Levetiracetam (Keppra) 1,500 mg BID PEG ; Start 11/08/17 at 21:00 Active Scripts Active Hydrochlorothiazide Tablet (Hydrochlorothiazide) 25 Mg Tablet 1 Tab PO DAILY Reported Ipratropium [place] 0.2 Mg/1 Ml Solution 0.5 Mg IH Q4HRS Refresh Optive Eye Drops (Carboxymethylcellulos/Glycerin) 15 Ml Drops 1 Drop EACHEYE QID Milk Of Magnesia (Magnesium Hydroxide) 2,400 Mg/10 Ml Oral.susp Unknown Dose PO Pulmicort (Budesonide) 0.25 Mg/2 Ml Ampul.neb 1 Vial NEB BID Peridex (Chlorhexidine Gluconate) 15 Ml Mouthwash 15 Ml PO BID Lipitor (Atorvastatin Calcium) 10 Mg Tablet 1 Tab PO QHS Brovana (Arformoterol Tartrate) 15 Mcg/2 Ml Vial.neb 15 Mcg IH Venlafaxine Hcl 37.5 Mg Tablet 2 Tab PO HS Gabapentin Oral Solution (Gabapentin) 300 Mg/6 Ml Solution 6 Ml PO HS Amlodipine Besylate 10 Mg Tablet 10 Mg PO DAILY Docusate Sodium 50 Mg/5 Ml Liquid Unknown Dose PO Terazosin Hcl 2 Mg Capsule 1 Cap PO QHS Modafinil 100 Mg Tablet 100 Mg PO DAILY Lisinopril 40 Mg Tablet 1 Tab PO DAILY Aspirin 325 Mg Tablet 1 Tab PO DAILY Carvedilol 25 Mg Tablet 1 Tab PO BID [protonnix packet] Unknown Dose Metformin Hcl 500 Mg Tablet 500 Mg PO BIDWMEALS Emanuel-In-Maru (Ferrous Sulfate) 15 Mg/1 Ml Drops 15 Mg PO Zinc Sulfate 220 Mg Capsule 220 Mg PO Zinc Sulfate 220 Mg Capsule 220 Mg PO Culturelle Capsule (L. Rhamnosus GG/Inulin) 1 Each Cap.sprink 1 Each PO Aldactazide 25-25 Tablet (Spironolact/Hydrochlorothiazid) 1 Each Tablet 0.5 Each PO Acetaminophen 325 Mg Capsule 325 Mg PO [place] 5-325 Tablet (Acetaminophen/Hydrocodone Bitart) 1 Each Tablet 1 Tab PO PRN Q6HRS PRN Hydralazine Hcl 25 Mg Tablet 75 Mg PO TID Albuterol Sulfate Conc Neb Soln (Albuterol Sulfate) 2.5 Mg/0.5 Ml Vial.neb 1 Vial NEB Q4HRS Melatonin 3 Mg Tablet 1 Tab PO QHS Biofreeze (Menthol) 118 Ml Gel..ml. 118 Ml TP Vitals/I & O Vital Sign - Last 24 Hours 11/07/17 11/07/17 11/07/17 11/07/17 21:48 21:49 21:55 22:55 Pulse 78 73 Resp 12 23 B/P (MAP) 127/79 127/79 Pulse Ox 98 96 O2 Delivery Room Air Room Air 11/07/17 11/08/17 11/08/17 11/08/17 23:30 00:00 04:00 08:00 Temp 98.6 98.7 98.6 98.7 Pulse 77 76 87 Resp 14 12 B/P (MAP) 97/54 (68) 113/75 (88) 167/89 Pulse Ox 99 98 99 O2 Delivery Room Air Room Air Room Air 11/08/17 11/08/17 11/08/17 11/08/17 08:00 08:00 09:06 09:42 Temp 97.3 97.3 Pulse 83 87 Resp 18 B/P (MAP) 167/89 (115) 167/89 Pulse Ox 100 97 O2 Delivery Room Air Room Air Room Air 11/08/17 11/08/17 11/08/17 11/08/17 09:43 09:44 11:15 12:18 Temp 97.6 97.6 Pulse 87 87 80 Resp 20 B/P (MAP) 167/89 167/89 171/81 (111) Pulse Ox 97 O2 Delivery Room Air Room Air 11/08/17 11/08/17 11/08/17 11/08/17 14:00 15:38 16:07 19:18 Temp 98.0 98.0 Pulse 60 60 85 Resp 16 B/P (MAP) 103/57 103/57 (72) 124/89 Pulse Ox 98 O2 Delivery Room Air Room Air 11/08/17 11/08/17 11/08/17 19:59 20:13 20:16 Temp 97.9 97.9 Pulse 80 Resp 14 B/P (MAP) 112/69 (83) Pulse Ox 98 O2 Delivery Room Air Room Air Room Air Intake and Output 11/07/17 11/07/17 11/08/17 15:00 23:00 07:00 Intake Total 625 ml 0 ml 0 ml Output Total 250 ml Balance 625 ml -250 ml 0 ml PREET LAZCANO MD Nov 08, 2017 21:19
[2017-11-08] MEDS: GABAPENTIN 300 MG CAPSULE. PO SCH (21:59)
[2017-11-08] MEDS: ATORVASTATIN CALCIUM 40 MG TABLET. PO SCH (22:01)
[2017-11-08] MEDS: LACOSAMIDE 200 MG TABLET PO SCH (22:04)
[2017-11-08] MEDS: HYDROcodone/APAP 5/325MG 1 TAB TABLET PO PRN (22:05)
[2017-11-08] MEDS: TERAZOSIN 1 MG CAPSULE. PO SCH (22:06)
[2017-11-08] MEDS: VENLAFAXINE 50 MG TABLET. PO SCH (22:09)
[2017-11-09] MEDS: INSULIN ASPART 300 UNITS/3 ML INSULN.PEN SQ SCH ×4 (01:00→17:22)
[2017-11-09] MEDS: IPRATRPIUM/ALBUTEROL 0.5/2.5MG 3 ML NEBU. NEB SCH ×6 (03:35→23:23)
[2017-11-09 04:25] VITALS: BP 107/62
[2017-11-09 07:30] VITALS: BP 98/57
[2017-11-09] MEDS: BUDESONIDE 0.5 MG/2 ML NEBU. NEB SCH ×2 (08:06→19:41)
[2017-11-09] MEDS: POLYVINYL ALCOHOL 1.4% OPHTH SOLUTION 15ML BOTTLE. OU SCH ×4 (09:00→21:00)
[2017-11-09] MEDS: CHLORHEXIDINE 0.12% 15 ML MOUTHWASH. MM SCH ×2 (09:00→22:03)
[2017-11-09] MEDS: PANTOPRAZOLE IV PUSH 40 MG VIAL. IVP SCH (10:20)
[2017-11-09] MEDS: CARVEDILOL 12.5 MG TABLET. PO SCH ×2 (10:21→17:21)
[2017-11-09] MEDS: LACTOBACILLUS RHAMNOSUS GG 1 CAPSULE. PO SCH ×2 (10:24→22:07)
[2017-11-09] MEDS: SPIRONOLACTONE 25 MG TABLET PO SCH (10:24)
[2017-11-09] MEDS: LISINOPRIL 40 MG TABLET. PO SCH (10:25)
[2017-11-09] MEDS: ZINC SULFATE 220 MG CAPSULE. PO SCH (10:27)
[2017-11-09] MEDS: LACOSAMIDE 200 MG TABLET PO SCH ×2 (10:27→22:09)
[2017-11-09] MEDS: ASPIRIN 325 MG TABLET PO SCH (10:27)
[2017-11-09] MEDS: metFORMIN 500 MG TABLET PO SCH ×2 (10:27→17:21)
[2017-11-09] MEDS: hydroCHLOROthiazide 25 MG TABLET PO SCH (10:27)
[2017-11-09] MEDS: amLODIPine BESYLATE 10 MG TABLET PO SCH (10:29)
[2017-11-09] MEDS: DOCUSATE 100 MG/10 ML SOLUTION. PO SCH (10:31)
[2017-11-09] MEDS: ENOXAPARIN 40 MG/0.4 ML SYRINGE. SQ SCH (10:31)
--- NOTE | 2017-11-09 11:26 | PDOC ---
PROGRESS NOTES Subjective Subjective not as perky as yesterday, cannot remember my name,confused Objective Objective Vital Signs Date Time Temp Pulse Resp B/P (MAP) Pulse Ox O2 Delivery O2 Flow Rate FiO2 11/09/17 10:29 70 143/95 11/09/17 08:07 99 Room Air 11/09/17 07:30 97.2 16 97.2 Intake and Output 11/09/17 07:00 Intake Total 150 ml Output Total 0 ml Balance 150 ml Intake Oral 0 ml Tube Feeding 150 ml Gastric Drainage Total 0 ml # Voids 5 Physical Exam Abdomen: Normal bowel sounds, Soft Heart: Regular rate, Normal S1, Normal S2 Extremities: No edema General: Alert, Cooperative HEENT: Atraumatic Lungs: Clear to auscultation Neck: Supple Neuro: Normal speech Psych/Mental Status: Mood NL COMMENT ltside weakness from prior stroke Diagnosis Problem List Problems Medical Problems: (1) Seizure Status: Acute (2) Raymond's paralysis (postepileptic) Status: Acute Assessment Assessment Problems Medical Problems: (1) Seizure Status: Acute (2) Raymond's paralysis (postepileptic) Status: Acute FINAL IMPRESSION: confusion today 1. Change in mental status, looks like more of a postictal change rather any new stroke. 2. MRI shows only old stroke. No new stroke. 3. History of previous cerebrovascular accident. 4. Coronary artery disease. 5. Hypertension. 6. Diabetes. 7. Hyperlipidemia. 8. History of prostate cancer. 9. J-tube for medications and also history of tracheostomy, which was closed. 10 .Seizures on vampet+keppra PLAN: daughter thinks keppra high dose (1500 bid) causing problems . dec to 1300 from 1500 bid and see how he does, he was getting 1250 bid at he [place] prior to this admission labs today. same dose vampet 200 bid vedio swallow no aspiration ,slow transit. seeing speech therapy.npo for today MRI brain no new cva no more seizures noted. rehab consult tube feedings J tube Problems: Plan Plan of Care Problems Medical Problems: (1) Seizure Status: Acute (2) Raymond's paralysis (postepileptic) Status: Acute Comment Review of Relevant I have reviewed the following items bob (where applicable) has been applied. Labs Laboratory Tests Test 11/08/17 11:35 11/08/17 17:11 11/08/17 21:48 11/09/17 01:06 Glucose (Fingerstick) 152 mg/dL (70-99) 151 mg/dL (70-99) 155 mg/dL (70-99) 225 mg/dL (70-99) Test 11/09/17 04:26 Glucose (Fingerstick) 187 mg/dL (70-99) Medications Current Medications Lacosamide (Vimpat) 200 mg BID PO Last administered on 11/09/17 10:27; Start 11/08/17 at 21:45 Levetiracetam (Keppra) 1,500 mg BID PEG Last administered on 11/08/17 22:14; Start 11/08/17 at 21:00 Metformin HCl (Glucophage) 500 mg BIDWMEALS PO Last administered on 11/09/17 10:27; Start 11/09/17 at 08:00 Vitals/I & O Vital Sign - Last 24 Hours 11/08/17 11/08/17 11/08/17 11/08/17 12:18 14:00 15:38 16:07 Temp 98.0 98.0 Pulse 60 60 Resp 16 B/P (MAP) 103/57 103/57 (72) Pulse Ox 98 O2 Delivery Room Air Room Air Room Air 11/08/17 11/08/17 11/08/17 11/08/17 19:18 19:59 20:00 20:13 Temp 97.9 97.9 Pulse 85 80 Resp 14 B/P (MAP) 124/89 112/69 (83) Pulse Ox 98 O2 Delivery Room Air Room Air Room Air 11/08/17 11/08/17 11/08/17 11/08/17 20:16 22:05 22:06 22:10 Pulse 80 80 Resp 20 B/P (MAP) 112/69 112/69 Pulse Ox 98 O2 Delivery Room Air Room Air 11/08/17 11/08/17 11/09/17 11/09/17 22:44 23:05 03:36 04:25 Temp 98.3 97.3 98.3 97.3 Pulse 73 55 Resp 16 22 16 B/P (MAP) 99/58 (72) 107/62 (77) Pulse Ox 97 97 100 99 O2 Delivery Room Air Room Air Room Air Room Air 11/09/17 11/09/17 11/09/17 12/17/17 07:30 08:07 10:21 10:25 Temp 97.2 97.2 Pulse 70 70 70 Resp 16 B/P (MAP) 98/57 (71) 141/80 143/95 Pulse Ox 98 99 O2 Delivery Room Air Room Air 11/09/17 11/09/17 10:26 10:29 Pulse 70 70 B/P (MAP) 143/95 143/95 Intake and Output 11/08/17 11/08/17 11/09/17 15:00 23:00 07:00 Intake Total 75 ml 75 ml 0 ml Output Total 0 ml 0 ml Balance 75 ml 75 ml 0 ml Nutrition Consultation Dietary Evaluation: Recommendations by RD: Increase Calorie Intake Comments: REC Diabetisource AC@goal rate 50 ml/hr w/75 ml water flushes q4 hrs or flushes per MD Expected Outcomes/Goals: TF initiated and infusing to meet > 65% est needs Malnutrition Findings: Food and Nutrition Intake (Mod: <75% est energy req 7days Body Fat Depletion (Non Severe: Mild Depletion Weight Status: Appropriate CANDACE AHUMADA MD Nov 09, 2017 11:26
[2017-11-09 11:30] VITALS: BP_SYST 122; BP_SYST 141; BP_DIAS 59; BP_DIAS 80
[2017-11-09 12:29] LABS: BASO # 0.1 x10^3/uL (0.0-0.2); BASO % 1 % (0-3); EOS % 4 % (0-3); HEMATOCRIT 32.2 % (39.0-53.0); HEMOGLOBIN 10.4 g/dL (13.0-17.5); LYMPH # 0.9 x10^3/uL (1.0-4.8); LYMPH % 15 % (24-48); MEAN CORPUSCULAR HEMOGLOBIN 27 pg (25-35); MEAN CORPUSCULAR HGB CONC 32 g/dL (31-37); MEAN CORPUSCULAR VOLUME 83 fL (79-100); MONO % 11 % (0-9); NEUT % 69 % (31-73); PLATELET COUNT 275 x10^3/uL (140-400); RED BLOOD COUNT 3.86 x10^6/uL (4.30-5.70); RED CELL DISTRIBUTION WIDTH 18.6 % (11.5-14.5)
[2017-11-09 12:39] LABS: CALCIUM 8.6 mg/dL (8.5-10.1); CREATININE 0.9 mg/dL (0.7-1.3); GFR 99.3; POTASSIUM 3.5 mmol/L (3.5-5.1)
[2017-11-09 15:00] VITALS: BP 122/59
[2017-11-09 19:30] VITALS: BP 127/75
--- NOTE | 2017-11-09 21:01 | CONS ---
DATE OF CONSULTATION: 11/09/2017 REQUESTING PHYSICIAN: Gumaro Pereira M.D. LOCATION: He is in room 256. HISTORY OF PRESENT ILLNESS: This is a 77-year-old male has been independent with mobility and self-care skills until about 7 months ago had started having seizures has been in and out of [facility] and multiple hospitalizations lately. The patient was last time was transferred to [facility]. The patient was noted with mental status change. Not following commands, slightly weaker than usual and was admitted to [facility] on 11/06/2017. The patient with known diabetes mellitus, hypertension, coronary artery disease, carcinoma of prostate, anxiety, depression, seizure workup revealed that he had cerebrovascular accident with mild left hemiparesis. He also had problems with respiratory failure requiring tracheostomy, which was decannulated and he is on a vent for a while. The patient had J tube. Speech pathology looked at him and noted him in no obvious aspiration, but he is keeping the food in the mouth. The patient had a J-tube not PEG tube. He had surgery for carcinoma of prostate. ALLERGIES: He is not known allergic to any medication. PHYSICAL EXAMINATION: The patient on physical examination today revealed an elderly male. He is somewhat lethargic, but can be awakened. He moves all 4 extremities voluntarily where he had generalized muscle weakness. Muscle strength overall being 2 x 5 to 3 x 5 grade. Deep tendon reflexes are 1-2+ and symmetrical. He had extensor plantar response on the left side. He had a positive bowel movement reflex and Edwards sign bilaterally. He seemed to have equal perception of touch and pinprick sensation bilaterally. He needs help with bed mobility. I have not tested his transfers or ambulation skills at this time. ASSESSMENT: An elderly male with recurrent seizures and also radiological evidence of cerebrovascular accident with mild left hemiparesis, diabetes mellitus, hypertension, coronary artery disease, carcinoma of prostate, anxiety, depression, status post respiratory failure in the past and dysphagia requiring J tube placement and overall deconditioned state. RECOMMENDATIONS: Agree with the plan for physical therapy and occupational therapy to get him up as tolerated and back to [facility] care unit when he is medically stable. Dr. Pereira, I appreciate asking me to participate in the care of this interesting patient. I will be glad to follow him with you as needed for the rehabilitation. TEE MELENDREZ MD DR: PINKY/keshav JOB#: [id number] / [id number]
[2017-11-09] MEDS: TERAZOSIN 1 MG CAPSULE. PO SCH (22:03)
[2017-11-09] MEDS: VENLAFAXINE 50 MG TABLET. PO SCH (22:07)
[2017-11-09] MEDS: GABAPENTIN 300 MG CAPSULE. PO SCH (22:08)
[2017-11-09] MEDS: ATORVASTATIN CALCIUM 40 MG TABLET. PO SCH (22:11)
[2017-11-09 23:10] VITALS: BP 113/70
[2017-11-10 03:30] VITALS: BP 130/78
[2017-11-10] MEDS: IPRATRPIUM/ALBUTEROL 0.5/2.5MG 3 ML NEBU. NEB SCH ×6 (03:47→23:24)
[2017-11-10 04:37] LABS: BASO # 0.1 x10^3/uL (0.0-0.2); BASO % 1 % (0-3); EOS % 2 % (0-3); HEMOGLOBIN 10.6 g/dL (13.0-17.5); LYMPH # 1.2 x10^3/uL (1.0-4.8); LYMPH % 18 % (24-48); MEAN CORPUSCULAR HEMOGLOBIN 27 pg (25-35); MEAN CORPUSCULAR HGB CONC 32 g/dL (31-37); MEAN CORPUSCULAR VOLUME 85 fL (79-100); MONO % 7 % (0-9); NEUT % 72 % (31-73); PLATELET COUNT 265 x10^3/uL (140-400); RED BLOOD COUNT 3.89 x10^6/uL (4.30-5.70); WHITE BLOOD COUNT 6.5 x10^3/uL (4.0-11.0)
[2017-11-10 05:15] LABS: CALCIUM 8.6 mg/dL (8.5-10.1); CREATININE 0.9 mg/dL (0.7-1.3); GFR 99.3; POTASSIUM 3.7 mmol/L (3.5-5.1)
[2017-11-10] MEDS: INSULIN ASPART 300 UNITS/3 ML INSULN.PEN SQ SCH ×4 (06:00→23:46)
[2017-11-10 07:00] VITALS: BP 147/85
[2017-11-10] MEDS: BUDESONIDE 0.5 MG/2 ML NEBU. NEB SCH ×2 (08:22→19:14)
[2017-11-10] MEDS: POLYVINYL ALCOHOL 1.4% OPHTH SOLUTION 15ML BOTTLE. OU SCH ×4 (09:00→20:40)
[2017-11-10] MEDS: ASPIRIN 325 MG TABLET PO SCH (09:08)
[2017-11-10] MEDS: LISINOPRIL 40 MG TABLET. PO SCH (09:08)
[2017-11-10] MEDS: hydroCHLOROthiazide 25 MG TABLET PO SCH (09:08)
[2017-11-10] MEDS: metFORMIN 500 MG TABLET PO SCH ×2 (09:08→17:26)
[2017-11-10] MEDS: LACTOBACILLUS RHAMNOSUS GG 1 CAPSULE. PO SCH ×2 (09:09→20:36)
[2017-11-10] MEDS: LACOSAMIDE 200 MG TABLET PO SCH ×2 (09:09→21:00)
[2017-11-10] MEDS: amLODIPine BESYLATE 10 MG TABLET PO SCH (09:09)
[2017-11-10] MEDS: DOCUSATE 100 MG/10 ML SOLUTION. PO SCH (09:10)
[2017-11-10] MEDS: SPIRONOLACTONE 25 MG TABLET PO SCH (09:10)
[2017-11-10] MEDS: CARVEDILOL 12.5 MG TABLET. PO SCH ×2 (09:10→17:26)
[2017-11-10] MEDS: ZINC SULFATE 220 MG CAPSULE. PO SCH (09:10)
[2017-11-10] MEDS: ENOXAPARIN 40 MG/0.4 ML SYRINGE. SQ SCH (09:11)
[2017-11-10] MEDS: CHLORHEXIDINE 0.12% 15 ML MOUTHWASH. MM SCH ×2 (09:11→21:00)
--- NOTE | 2017-11-10 10:09 | PDOC ---
PROGRESS NOTES Subjective Subjective No new complaints. Objective Objective Vital Signs Date Time Temp Pulse Resp B/P (MAP) Pulse Ox O2 Delivery O2 Flow Rate FiO2 11/10/17 09:10 69 147/85 11/10/17 08:23 95 Room Air 11/10/17 07:00 98.2 16 98.2 Intake and Output 11/10/17 07:00 Intake Total 150 ml Output Total 0 ml Balance 150 ml Intake Oral 0 ml Tube Feeding 150 ml Gastric Drainage Total 0 ml # Voids 3 Physical Exam Physical Exam He is sitting up in bedside chair and comfortable and awke and talking and he did help physical therapy with transfers and he can weight bear on his feet to some extent. Assessment Assessment Problems Medical Problems: (1) Seizure Status: Acute (2) Raymond's paralysis (postepileptic) Status: Acute Plan Plan of Care To SNF when medically stable. Comment Review of Relevant I have reviewed the following items bob (where applicable) has been applied. Labs Laboratory Tests Test 11/08/17 11:35 11/08/17 17:11 11/08/17 21:48 11/09/17 01:06 Glucose (Fingerstick) 152 mg/dL (70-99) 151 mg/dL (70-99) 155 mg/dL (70-99) 225 mg/dL (70-99) Test 11/09/17 04:26 11/09/17 11:42 11/09/17 12:10 11/09/17 17:11 Glucose (Fingerstick) 187 mg/dL (70-99) 133 mg/dL (70-99) 133 mg/dL (70-99) White Blood Count 6.0 x10^3/uL (4.0-11.0) Red Blood Count 3.86 x10^6/uL (4.30-5.70) Hemoglobin 10.4 g/dL (13.0-17.5) Hematocrit 32.2 % (39.0-53.0) Mean Corpuscular Volume 83 fL (79-100) Mean Corpuscular Hemoglobin 27 pg (25-35) Mean Corpuscular Hemoglobin Concent 32 g/dL (31-37) Red Cell Distribution Width 18.6 % (11.5-14.5) Platelet Count 275 x10^3/uL (140-400) Neutrophils (%) (Auto) 69 % (31-73) Lymphocytes (%) (Auto) 15 % (24-48) Monocytes (%) (Auto) 11 % (0-9) Eosinophils (%) (Auto) 4 % (0-3) Basophils (%) (Auto) 1 % (0-3) Neutrophils # (Auto) 4.1 x10^3uL (1.8-7.7) Lymphocytes # (Auto) 0.9 x10^3/uL (1.0-4.8) Monocytes # (Auto) 0.7 x10^3/uL (0.0-1.1) Eosinophils # (Auto) 0.2 x10^3/uL (0.0-0.7) Basophils # (Auto) 0.1 x10^3/uL (0.0-0.2) Sodium Level 143 mmol/L (136-145) Potassium Level 3.5 mmol/L (3.5-5.1) Chloride Level 105 mmol/L (98-107) Carbon Dioxide Level 30 mmol/L (21-32) Anion Gap 8 (6-14) Blood Urea Nitrogen 25 mg/dL (8-26) Creatinine 0.9 mg/dL (0.7-1.3) Estimated GFR (Cockcroft-Gault) 99.3 Glucose Level 129 mg/dL (70-99) Calcium Level 8.6 mg/dL (8.5-10.1) Test 11/09/17 23:55 11/10/17 03:20 11/10/17 06:02 Glucose (Fingerstick) 179 mg/dL (70-99) 150 mg/dL (70-99) White Blood Count 6.5 x10^3/uL (4.0-11.0) Red Blood Count 3.89 x10^6/uL (4.30-5.70) Hemoglobin 10.6 g/dL (13.0-17.5) Hematocrit 33.0 % (39.0-53.0) Mean Corpuscular Volume 85 fL (79-100) Mean Corpuscular Hemoglobin 27 pg (25-35) Mean Corpuscular Hemoglobin Concent 32 g/dL (31-37) Red Cell Distribution Width 19.0 % (11.5-14.5) Platelet Count 265 x10^3/uL (140-400) Neutrophils (%) (Auto) 72 % (31-73) Lymphocytes (%) (Auto) 18 % (24-48) Monocytes (%) (Auto) 7 % (0-9) Eosinophils (%) (Auto) 2 % (0-3) Basophils (%) (Auto) 1 % (0-3) Neutrophils # (Auto) 4.7 x10^3uL (1.8-7.7) Lymphocytes # (Auto) 1.2 x10^3/uL (1.0-4.8) Monocytes # (Auto) 0.4 x10^3/uL (0.0-1.1) Eosinophils # (Auto) 0.2 x10^3/uL (0.0-0.7) Basophils # (Auto) 0.1 x10^3/uL (0.0-0.2) Sodium Level 143 mmol/L (136-145) Potassium Level 3.7 mmol/L (3.5-5.1) Chloride Level 104 mmol/L (98-107) Carbon Dioxide Level 29 mmol/L (21-32) Anion Gap 10 (6-14) Blood Urea Nitrogen 25 mg/dL (8-26) Creatinine 0.9 mg/dL (0.7-1.3) Estimated GFR (Cockcroft-Gault) 99.3 Glucose Level 175 mg/dL (70-99) Calcium Level 8.6 mg/dL (8.5-10.1) Laboratory Tests Test 11/09/17 11:42 11/09/17 12:10 11/09/17 17:11 11/09/17 23:55 Glucose (Fingerstick) 133 mg/dL (70-99) 133 mg/dL (70-99) 179 mg/dL (70-99) White Blood Count 6.0 x10^3/uL (4.0-11.0) Red Blood Count 3.86 x10^6/uL (4.30-5.70) Hemoglobin 10.4 g/dL (13.0-17.5) Hematocrit 32.2 % (39.0-53.0) Mean Corpuscular Volume 83 fL (79-100) Mean Corpuscular Hemoglobin 27 pg (25-35) Mean Corpuscular Hemoglobin Concent 32 g/dL (31-37) Red Cell Distribution Width 18.6 % (11.5-14.5) Platelet Count 275 x10^3/uL (140-400) Neutrophils (%) (Auto) 69 % (31-73) Lymphocytes (%) (Auto) 15 % (24-48) Monocytes (%) (Auto) 11 % (0-9) Eosinophils (%) (Auto) 4 % (0-3) Basophils (%) (Auto) 1 % (0-3) Neutrophils # (Auto) 4.1 x10^3uL (1.8-7.7) Lymphocytes # (Auto) 0.9 x10^3/uL (1.0-4.8) Monocytes # (Auto) 0.7 x10^3/uL (0.0-1.1) Eosinophils # (Auto) 0.2 x10^3/uL (0.0-0.7) Basophils # (Auto) 0.1 x10^3/uL (0.0-0.2) Sodium Level 143 mmol/L (136-145) Potassium Level 3.5 mmol/L (3.5-5.1) Chloride Level 105 mmol/L (98-107) Carbon Dioxide Level 30 mmol/L (21-32) Anion Gap 8 (6-14) Blood Urea Nitrogen 25 mg/dL (8-26) Creatinine 0.9 mg/dL (0.7-1.3) Estimated GFR (Cockcroft-Gault) 99.3 Glucose Level 129 mg/dL (70-99) Calcium Level 8.6 mg/dL (8.5-10.1) Test 11/10/17 03:20 11/10/17 06:02 White Blood Count 6.5 x10^3/uL (4.0-11.0) Red Blood Count 3.89 x10^6/uL (4.30-5.70) Hemoglobin 10.6 g/dL (13.0-17.5) Hematocrit 33.0 % (39.0-53.0) Mean Corpuscular Volume 85 fL (79-100) Mean Corpuscular Hemoglobin 27 pg (25-35) Mean Corpuscular Hemoglobin Concent 32 g/dL (31-37) Red Cell Distribution Width 19.0 % (11.5-14.5) Platelet Count 265 x10^3/uL (140-400) Neutrophils (%) (Auto) 72 % (31-73) Lymphocytes (%) (Auto) 18 % (24-48) Monocytes (%) (Auto) 7 % (0-9) Eosinophils (%) (Auto) 2 % (0-3) Basophils (%) (Auto) 1 % (0-3) Neutrophils # (Auto) 4.7 x10^3uL (1.8-7.7) Lymphocytes # (Auto) 1.2 x10^3/uL (1.0-4.8) Monocytes # (Auto) 0.4 x10^3/uL (0.0-1.1) Eosinophils # (Auto) 0.2 x10^3/uL (0.0-0.7) Basophils # (Auto) 0.1 x10^3/uL (0.0-0.2) Sodium Level 143 mmol/L (136-145) Potassium Level 3.7 mmol/L (3.5-5.1) Chloride Level 104 mmol/L (98-107) Carbon Dioxide Level 29 mmol/L (21-32) Anion Gap 10 (6-14) Blood Urea Nitrogen 25 mg/dL (8-26) Creatinine 0.9 mg/dL (0.7-1.3) Estimated GFR (Cockcroft-Gault) 99.3 Glucose Level 175 mg/dL (70-99) Calcium Level 8.6 mg/dL (8.5-10.1) Glucose (Fingerstick) 150 mg/dL (70-99) Medications Current Medications Iohexol (Omnipaque 300 Mg/ml) 75 ml 1X ONCE IV ; Start 11/06/17 at 15:45; Stop 11/06/17 at 15:48; Status DC Info (Do NOT chart on this entry -- for MONITORING) 1 each PRN DAILY PRN MC SEE COMMENTS; Start 11/06/17 at 16:00; Stop 11/08/17 at 15:59; Status DC Ondansetron HCl (Zofran) 4 mg PRN Q8HRS PRN IV NAUSEA/VOMITING; Start at 18:00; Stop 11/07/17 at 17:59; Status DC Fentanyl Citrate (Fentanyl 2ml Vial) 50 mcg PRN Q1HR PRN IV PAIN; Start at 18:00; Stop 11/07/17 at 17:59; Status DC Levetiracetam 500 mg/Dextrose 105 ml @ 420 mls/hr Q12HR IV Last administered on 11/08/17 09:40; Start 11/06/17 at 21:00; Stop 11/08/17 at 12:18; Status DC Aspirin (Aide Aspirin) 325 mg 1X ONCE PO Last administered on 11/07/17 00: 29; Start 11/06/17 at 18:45; Stop 11/06/17 at 19:08; Status DC Gadobutrol (Gadavist) 7 mmol 1X ONCE IV ; Start 11/06/17 at 22:00; Stop 11/06 at 22:01; Status DC Insulin Aspart (NovoLOG) 0-7 UNITS TIDWMEALS SQ Last administered on 11:49; Start 11/07/17 at 08:00; Stop 11/07/17 at 15:17; Status DC Dextrose (Dextrose 50%-Water Syringe) 12.5 gm PRN Q15MIN PRN IV SEE COMMENTS; Start 11/06/17 at 22:15 Lacosamide (Vimpat) 200 mg BID PO Last administered on 11/08/17 09:41; Start 11/07/17 at 00:30; Stop 11/08/17 at 21:40; Status DC Hydralazine HCl (Apresoline) 75 mg TID PO Last administered on 11/10/17 09:09 ; Start 11/07/17 at 10:30 Spironolactone (Aldactone) 12.5 mg DAILY PO Last administered on 11/10/17 09: 10; Start 11/07/17 at 10:30 Lactobacillus Rhamnosus (Culturelle) 1 cap BID PO Last administered on 09:09; Start 11/07/17 at 10:30 Zinc Sulfate (Orazinc) 220 mg DAILY PO Last administered on 11/10/17 09:10; Start 11/07/17 at 10:30 Metformin HCl (Glucophage) 500 mg BIDWMEALS PO Last administered on 11/10/17 09:08; Start 11/09/17 at 08:00 Pantoprazole Sodium (PROTONIX VIAL for IV PUSH) 40 mg DAILYAC IVP Last administered on 11/09/17 10:20; Start 11/07/17 at 10:30 Carvedilol (Coreg) 25 mg BIDWMEALS PO Last administered on 11/10/17 09:10; Start 11/07/17 at 10:30 Aspirin (Aide Aspirin) 325 mg DAILYWBKFT PO Last administered on 11/10/17 09 :08; Start 11/07/17 at 10:30 Lisinopril (Prinivil) 40 mg DAILY PO Last administered on 11/10/17 09:08; Start 11/07/17 at 10:30 Terazosin HCl (Hytrin) 2 mg QHS PO Last administered on 11/09/17 22:03; Start 11/07/17 at 21:00 Docusate Sodium (Colace Solution) 100 mg PRN DAILY PRN PO CONSTIPATION; Start 11/07/17 at 09:45 Amlodipine Besylate (Norvasc) 10 mg DAILY PO Last administered on 11/10/17 09 :09; Start 11/07/17 at 10:30 Venlafaxine HCl (Effexor) 75 mg HS PO Last administered on 11/09/17 22:07; Start 11/07/17 at 21:00 Atorvastatin Calcium (Lipitor) 40 mg QHS PO Last administered on 11/09/17 22: 11; Start 11/07/17 at 21:00 Amlodipine Besylate (Norvasc) 10 mg DAILY PO ; Start 11/07/17 at 11:00; Stop 11/07/17 at 13:00; Status DC Aspirin (Aide Aspirin) 325 mg DAILY PO ; Start 11/07/17 at 11:00; Stop at 13:00; Status DC Atorvastatin Calcium (Lipitor) 10 mg QHS PO ; Start 11/07/17 at 21:00; Stop at 21:00; Status DC Chlorhexidine Gluconate (Peridex) 15 ml BID MM Last administered on 11/10/17 09:11; Start 11/07/17 at 11:00 Docusate Sodium (Colace Solution) 50 mg DAILY PO Last administered on 09:10; Start 11/07/17 at 11:00 Hydralazine HCl (Apresoline) 75 mg TID PO ; Start 11/07/17 at 11:00; Stop at 13:00; Status DC Hydrochlorothiazide (Hydrodiuril) 25 mg DAILY PO Last administered on 09:08; Start 11/07/17 at 11:00 Acetaminophen/ Hydrocodone Bitart (Lortab 5/325) 1 tab PRN Q6HRS PRN PO PAIN Last administered on 11/08/17 22:05; Start 11/07/17 at 10:15 Ipratropium Purdin (Atrovent) 0.5 mg Q4HRS IH ; Start 11/07/17 at 12:00; Stop 11/07/17 at 12:00; Status DC Lisinopril (Prinivil) 40 mg DAILY PO ; Start 11/07/17 at 11:00; Stop 11/07/17 at 13:00; Status DC Metformin HCl (Glucophage) 500 mg BIDWMEALS PO ; Start 11/07/17 at 12:00; Stop 11/07/17 at 13:01; Status DC Zinc Sulfate (Orazinc) 220 mg DAILY PO Last administered on 11/07/17 11:46; Start 11/07/17 at 11:00; Stop 11/07/17 at 13:01; Status DC Zinc Sulfate (Orazinc) 220 mg DAILY PO ; Start 11/08/17 at 09:00; Stop at 09:00; Status DC Non-Formulary Medication 1 vial Q4HRS NEB ; Start 11/07/17 at 12:00; Stop at 12:00; Status DC Non-Formulary Medication 1 vial BID NEB ; Start 11/07/17 at 21:00; Stop at 21:00; Status DC Artificial Tears (Artificial Tears) 1 drop QID OU Last administered on 21:00; Start 11/07/17 at 10:45 Carvedilol (Coreg) 25 mg BIDWMEALS PO ; Start 11/07/17 at 11:30; Stop at 13:01; Status DC Gabapentin (Neurontin) 300 mg QHS PO Last administered on 11/09/17 22:08; Start 11/07/17 at 21:00 Non-Formulary Medication 1 tab QHS PO ; Start 11/07/17 at 21:00; Stop at 21:00; Status DC Non-Formulary Medication 100 mg DAILY PO ; Start 11/08/17 at 09:00; Status UNV Terazosin HCl (Hytrin) 2 mg QHS PO ; Start 11/07/17 at 21:00; Status Cancel Venlafaxine HCl (Effexor) 75 mg QHS PO ; Start 11/07/17 at 21:00; Status Cancel Enoxaparin Sodium (Lovenox 40mg Syringe) 40 mg Q24H SQ Last administered on 09:11; Start 11/07/17 at 11:00 Albuterol/ Ipratropium (Duoneb) 3 ml Q4HRS NEB Last administered on 11/10/17 08:22; Start 11/07/17 at 12:00 Budesonide (Pulmicort) 0.5 mg RTBID NEB Last administered on 11/10/17 08:22; Start 11/07/17 at 12:00 Barium Sulfate (Varibar Thin Liquid Apple) 148 gm 1X ONCE PO Last administered on 11/07/17 14:12; Start 11/07/17 at 12:15; Stop 11/07/17 at 12 :18; Status DC Insulin Aspart (NovoLOG) 0-7 UNITS Q6HRS SQ Last administered on 11/08/17 00: 12; Start 11/07/17 at 18:00 Levetiracetam (Keppra) 1,500 mg BID PEG Last administered on 11/08/17 22:14; Start 11/08/17 at 21:00; Stop 11/09/17 at 11:22; Status DC Lacosamide (Vimpat) 200 mg BID PO Last administered on 11/10/17 09:09; Start 11/08/17 at 21:45 Levetiracetam (Keppra) 1,300 mg BID PEG Last administered on 11/09/17 22:14; Start 11/09/17 at 12:00 Active Scripts Active Hydrochlorothiazide Tablet (Hydrochlorothiazide) 25 Mg Tablet 1 Tab PO DAILY Reported Ipratropium Purdin 0.2 Mg/1 Ml Solution 0.5 Mg IH Q4HRS Refresh Optive Eye Drops (Carboxymethylcellulos/Glycerin) 15 Ml Drops 1 Drop EACHEYE QID Milk Of Magnesia (Magnesium Hydroxide) 2,400 Mg/10 Ml Oral.susp Unknown Dose PO Pulmicort (Budesonide) 0.25 Mg/2 Ml Ampul.neb 1 Vial NEB BID Peridex (Chlorhexidine Gluconate) 15 Ml Mouthwash 15 Ml PO BID Lipitor (Atorvastatin Calcium) 10 Mg Tablet 1 Tab PO QHS Brovana (Arformoterol Tartrate) 15 Mcg/2 Ml Vial.neb 15 Mcg IH Venlafaxine Hcl 37.5 Mg Tablet 2 Tab PO HS Gabapentin Oral Solution (Gabapentin) 300 Mg/6 Ml Solution 6 Ml PO HS Amlodipine Besylate 10 Mg Tablet 10 Mg PO DAILY Docusate Sodium 50 Mg/5 Ml Liquid Unknown Dose PO Terazosin Hcl 2 Mg Capsule 1 Cap PO QHS Modafinil 100 Mg Tablet 100 Mg PO DAILY Lisinopril 40 Mg Tablet 1 Tab PO DAILY Aspirin 325 Mg Tablet 1 Tab PO DAILY Carvedilol 25 Mg Tablet 1 Tab PO BID [protonnix packet] Unknown Dose Metformin Hcl 500 Mg Tablet 500 Mg PO BIDWMEALS Emanuel-In-Maru (Ferrous Sulfate) 15 Mg/1 Ml Drops 15 Mg PO Zinc Sulfate 220 Mg Capsule 220 Mg PO Zinc Sulfate 220 Mg Capsule 220 Mg PO Culturelle Capsule (L. Rhamnosus GG/Inulin) 1 Each Cap.sprink 1 Each PO Aldactazide 25-25 Tablet (Spironolact/Hydrochlorothiazid) 1 Each Tablet 0.5 Each PO Acetaminophen 325 Mg Capsule 325 Mg PO [place] 5-325 Tablet (Acetaminophen/Hydrocodone Bitart) 1 Each Tablet 1 Tab PO PRN Q6HRS PRN Hydralazine Hcl 25 Mg Tablet 75 Mg PO TID Albuterol Sulfate Conc Neb Soln (Albuterol Sulfate) 2.5 Mg/0.5 Ml Vial.neb 1 Vial NEB Q4HRS Melatonin 3 Mg Tablet 1 Tab PO QHS Biofreeze (Menthol) 118 Ml Gel..ml. 118 Ml TP Vitals/I & O Vital Sign - Last 24 Hours 11/09/17 11/09/17 11/09/17 11/09/17 10:21 10:25 10:26 10:29 Pulse 70 70 70 70 B/P (MAP) 141/80 143/95 143/95 143/95 1211/09/17 11/09/17 11/09/17 11:30 11:30 12:12 14:00 Temp 97.8 97.4 97.8 97.4 Pulse 71 63 63 Resp 20 16 B/P (MAP) 141/80 (100) 122/59 (80) 122/59 Pulse Ox 99 96 O2 Delivery Room Air Room Air Room Air 11/09/17 11/09/17 11/09/17 11/09/17 15:00 16:17 17:21 19:30 Temp 97.4 97.4 97.4 97.4 Pulse 63 63 71 Resp 16 18 B/P (MAP) 122/59 (80) 122/59 127/75 (92) Pulse Ox 96 96 O2 Delivery Room Air Room Air Room Air 11/09/17 11/09/17 11/09/17 11/09/17 19:42 19:43 20:00 22:03 Pulse 71 B/P (MAP) 127/75 O2 Delivery Room Air Room Air Room Air 11/09/17 11/09/17 11/09/17 11/10/17 22:11 23:10 23:24 03:30 Temp 97.8 97.6 97.8 97.6 Pulse 71 73 78 Resp 18 18 B/P (MAP) 127/75 113/70 (84) 130/78 (95) Pulse Ox 95 96 O2 Delivery Room Air Room Air Room Air 11/10/17 11/10/17 11/10/17 11/10/17 07:00 08:23 09:08 09:09 Temp 98.2 98.2 Pulse 69 69 69 Resp 16 B/P (MAP) 147/85 (105) 147/85 147/85 Pulse Ox 98 95 O2 Delivery Room Air Room Air 11/10/17 11/10/17 09:09 09:10 Pulse 69 69 B/P (MAP) 147/85 147/85 Intake and Output 11/09/17 11/09/17 11/10/17 15:00 23:00 07:00 Intake Total 75 ml 75 ml 0 ml Output Total 0 ml 0 ml Balance 75 ml 75 ml 0 ml Nutrition Consultation Dietary Evaluation: Recommendations by RD: Increase Calorie Intake Comments: REC Diabetisource AC@goal rate 50 ml/hr w/75 ml water flushes q4 hrs or flushes per MD Expected Outcomes/Goals: TF initiated and infusing to meet > 65% est needs Malnutrition Findings: Food and Nutrition Intake (Mod: <75% est energy req 7days Body Fat Depletion (Non Severe: Mild Depletion Weight Status: Appropriate TEE MELENDREZ MD Nov 10, 2017 10:08
--- NOTE | 2017-11-10 10:18 | PDOC ---
PROGRESS NOTES Subjective Subjective sitting in chair today Objective Objective Vital Signs Date Time Temp Pulse Resp B/P (MAP) Pulse Ox O2 Delivery O2 Flow Rate FiO2 11/10/17 09:10 69 147/85 11/10/17 08:23 95 Room Air 11/10/17 07:00 98.2 16 98.2 Intake and Output 11/10/17 07:00 Intake Total 150 ml Output Total 0 ml Balance 150 ml Intake Oral 0 ml Tube Feeding 150 ml Gastric Drainage Total 0 ml # Voids 3 Physical Exam Abdomen: Normal bowel sounds, Soft Heart: Regular rate, Normal S1, Normal S2 Extremities: No edema General: Alert, Cooperative HEENT: Atraumatic Lungs: Clear to auscultation Neck: Supple Neuro: Normal speech Psych/Mental Status: Mood NL COMMENT ltside weakness from prior stroke Diagnosis Problem List Problems Medical Problems: (1) Seizure Status: Acute (2) Raymond's paralysis (postepileptic) Status: Acute Assessment Assessment Problems Medical Problems: (1) Seizure Status: Acute (2) Raymond's paralysis (postepileptic) Status: Acute FINAL IMPRESSION: does not recognize me today 1. Change in mental status, looks like more of a postictal change rather any new stroke. 2. MRI shows only old stroke. No new stroke. 3. History of previous cerebrovascular accident. 4. Coronary artery disease. 5. Hypertension. 6. Diabetes. 7. Hyperlipidemia. 8. History of prostate cancer. 9. J-tube for medications and also history of tracheostomy, which was closed. 10 .Seizures on vampet+keppra PLAN: pt/ot rehab. daughter thinks keppra high dose (1500 bid) causing problems . dec to 1300 from 1500 bid and see how he does, he was getting 1250 bid at [facility] [place] prior to this admission labs ok same dose vampet 200 bid vedio swallow no aspiration ,slow transit. seeing speech therapy.speech working with oral feedings MRI brain no new cva no more seizures noted. rehab consult tube feedings J tube Problems: Plan Plan of Care Problems Medical Problems: (1) Seizure Status: Acute (2) Raymond's paralysis (postepileptic) Status: Acute Comment Review of Relevant I have reviewed the following items bob (where applicable) has been applied. Labs Laboratory Tests Test 11/09/17 11:42 11/09/17 12:10 11/09/17 17:11 11/09/17 23:55 Glucose (Fingerstick) 133 mg/dL (70-99) 133 mg/dL (70-99) 179 mg/dL (70-99) White Blood Count 6.0 x10^3/uL (4.0-11.0) Red Blood Count 3.86 x10^6/uL (4.30-5.70) Hemoglobin 10.4 g/dL (13.0-17.5) Hematocrit 32.2 % (39.0-53.0) Mean Corpuscular Volume 83 fL (79-100) Mean Corpuscular Hemoglobin 27 pg (25-35) Mean Corpuscular Hemoglobin Concent 32 g/dL (31-37) Red Cell Distribution Width 18.6 % (11.5-14.5) Platelet Count 275 x10^3/uL (140-400) Neutrophils (%) (Auto) 69 % (31-73) Lymphocytes (%) (Auto) 15 % (24-48) Monocytes (%) (Auto) 11 % (0-9) Eosinophils (%) (Auto) 4 % (0-3) Basophils (%) (Auto) 1 % (0-3) Neutrophils # (Auto) 4.1 x10^3uL (1.8-7.7) Lymphocytes # (Auto) 0.9 x10^3/uL (1.0-4.8) Monocytes # (Auto) 0.7 x10^3/uL (0.0-1.1) Eosinophils # (Auto) 0.2 x10^3/uL (0.0-0.7) Basophils # (Auto) 0.1 x10^3/uL (0.0-0.2) Sodium Level 143 mmol/L (136-145) Potassium Level 3.5 mmol/L (3.5-5.1) Chloride Level 105 mmol/L (98-107) Carbon Dioxide Level 30 mmol/L (21-32) Anion Gap 8 (6-14) Blood Urea Nitrogen 25 mg/dL (8-26) Creatinine 0.9 mg/dL (0.7-1.3) Estimated GFR (Cockcroft-Gault) 99.3 Glucose Level 129 mg/dL (70-99) Calcium Level 8.6 mg/dL (8.5-10.1) Test 11/10/17 03:20 11/10/17 06:02 White Blood Count 6.5 x10^3/uL (4.0-11.0) Red Blood Count 3.89 x10^6/uL (4.30-5.70) Hemoglobin 10.6 g/dL (13.0-17.5) Hematocrit 33.0 % (39.0-53.0) Mean Corpuscular Volume 85 fL (79-100) Mean Corpuscular Hemoglobin 27 pg (25-35) Mean Corpuscular Hemoglobin Concent 32 g/dL (31-37) Red Cell Distribution Width 19.0 % (11.5-14.5) Platelet Count 265 x10^3/uL (140-400) Neutrophils (%) (Auto) 72 % (31-73) Lymphocytes (%) (Auto) 18 % (24-48) Monocytes (%) (Auto) 7 % (0-9) Eosinophils (%) (Auto) 2 % (0-3) Basophils (%) (Auto) 1 % (0-3) Neutrophils # (Auto) 4.7 x10^3uL (1.8-7.7) Lymphocytes # (Auto) 1.2 x10^3/uL (1.0-4.8) Monocytes # (Auto) 0.4 x10^3/uL (0.0-1.1) Eosinophils # (Auto) 0.2 x10^3/uL (0.0-0.7) Basophils # (Auto) 0.1 x10^3/uL (0.0-0.2) Sodium Level 143 mmol/L (136-145) Potassium Level 3.7 mmol/L (3.5-5.1) Chloride Level 104 mmol/L (98-107) Carbon Dioxide Level 29 mmol/L (21-32) Anion Gap 10 (6-14) Blood Urea Nitrogen 25 mg/dL (8-26) Creatinine 0.9 mg/dL (0.7-1.3) Estimated GFR (Cockcroft-Gault) 99.3 Glucose Level 175 mg/dL (70-99) Calcium Level 8.6 mg/dL (8.5-10.1) Glucose (Fingerstick) 150 mg/dL (70-99) Medications Current Medications Levetiracetam (Keppra) 1,300 mg BID PEG Last administered on 11/09/17t 22:14; Start 11/09/17 at 12:00 Vitals/I & O Vital Sign - Last 24 Hours 11/09/17 11/09/17 11/09/17 11/09/17 10:21 10:25 10:26 10:29 Pulse 70 70 70 70 B/P (MAP) 141/80 143/95 143/95 143/95 11/09/17 11/09/17 11/09/17 11/09/17 11:30 11:30 12:12 14:00 Temp 97.8 97.4 97.8 97.4 Pulse 71 63 63 Resp 20 16 B/P (MAP) 141/80 (100) 122/59 (80) 122/59 Pulse Ox 99 96 O2 Delivery Room Air Room Air Room Air 11/09/17 11/09/17 11/09/17 11/09/17 15:00 16:17 17:21 19:30 Temp 97.4 97.4 97.4 97.4 Pulse 63 63 71 Resp 16 18 B/P (MAP) 122/59 (80) 122/59 127/75 (92) Pulse Ox 96 96 O2 Delivery Room Air Room Air Room Air 11/09/17 11/09/17 11/09/17 11/09/17 19:42 19:43 20:00 22:03 Pulse 71 B/P (MAP) 127/75 O2 Delivery Room Air Room Air Room Air 11/09/17 11/09/17 11/09/17 11/10/17 22:11 23:10 23:24 03:30 Temp 97.8 97.6 97.8 97.6 Pulse 71 73 78 Resp 18 18 B/P (MAP) 127/75 113/70 (84) 130/78 (95) Pulse Ox 95 96 O2 Delivery Room Air Room Air Room Air 11/10/17 11/10/17 11/10/17 11/10/17 07:00 08:23 09:08 09:09 Temp 98.2 98.2 Pulse 69 69 69 Resp 16 B/P (MAP) 147/85 (105) 147/85 147/85 Pulse Ox 98 95 O2 Delivery Room Air Room Air 11/10/17 11/10/17 09:09 09:10 Pulse 69 69 B/P (MAP) 147/85 147/85 Intake and Output 11/09/17 11/09/17 11/10/17 15:00 23:00 07:00 Intake Total 75 ml 75 ml 0 ml Output Total 0 ml 0 ml Balance 75 ml 75 ml 0 ml Nutrition Consultation Dietary Evaluation: Recommendations by RD: Increase Calorie Intake Comments: REC Diabetisource AC@goal rate 50 ml/hr w/75 ml water flushes q4 hrs or flushes per MD Expected Outcomes/Goals: TF initiated and infusing to meet > 65% est needs Malnutrition Findings: Food and Nutrition Intake (Mod: <75% est energy req 7days Body Fat Depletion (Non Severe: Mild Depletion Weight Status: Appropriate CANDACE AHUMADA MD Nov 10, 2017 10:18
[2017-11-10 11:00] VITALS: BP 102/65
[2017-11-10] MEDS: PANTOPRAZOLE IV PUSH 40 MG VIAL. IVP SCH (11:22)
[2017-11-10 12:44] LABS: BARBITURATES NEG (NEG); BENZODIAZEPINES NEG (NEG); CANNABINOIDS NEG (NEG); COCAINE NEG (NEG); METHADONE NEG (NEG); OPIATES NEG (NEG); PHENCYCLIDINE NEG (NEG)
[2017-11-10 13:05] LABS: BILIRUBIN,URINE NEGATIVE (NEG); GLUCOSE,URINE NEGATIVE (NEG); NITRITE,URINE NEGATIVE (NEG); PROTEIN,URINE 30 mg/dL (NEG-TRACE); UROBILINOGEN,URINE 0.2 mg/dL (0.2 mg/dL)
[2017-11-10 13:19] LABS: BACTERIA,URINE MODERATE /HPF (0-FEW); RBC,URINE 0 /HPF (0-2); WBC,URINE >40 /HPF (0-4); YEAST,URINE PRESENT /HPF
--- NOTE | 2017-11-10 14:29 | EEG ---
DATE OF SERVICE: 11/10/2017 EEG NUMBER: [id number]. OBJECTIVE: This is a 77-year-old male patient with history of seizure. He had increased mental status changes on 11/10/2017. EEG was requested to help evaluate seizure activity. METHODS: Twenty electrodes were applied according to the international 10-20 electrode placement system. EKG monitoring, hyperventilation, intermittent photic stimulation, monopolar and bipolar montages are routinely utilized. The record was obtained on a digital system with video monitoring. FINDINGS: 1. Background: The patient was recorded in the awake, drowsy, and sleep states. The overall background amplitude is variable. A posterior dominant rhythm of 6-8 Hz is observed with superimposed slowing in the theta and delta frequencies throughout the entire recording. 2. Abnormalities: No specific epileptiform discharge or electrographic seizure induced. Diffuse slowing in the theta and delta frequencies is throughout the entire recording. 3. Activation: Hyperventilation was performed with poor efforts. Intermittent photic stimulation was performed with photic driving. No specific epileptiform discharge or electrographic seizure induced by hyperventilation or intermittent photic stimulation. IMPRESSION: This EEG is an abnormal study for the awake, drowsy, and sleep states. The posterior dominant rhythm of 6-8 Hz is slow for age. The superimposed slowing in the theta and delta frequencies throughout the entire recording. No focal lateralizing, specific epileptiform discharge or electrographic seizure is seen. This pattern of EEG is suggestive of diffuse encephalopathy. GURPREET MUELLER MD DR: GUERDA/keshav JOB#: [id number] / [id number] MAUREEN
--- NOTE | 2017-11-10 14:32 | EEG ---
DATE OF SERVICE: 11/08/2017 ELECTROENCEPHALOGRAM NUMBER: [id number] OBJECTIVE: This is a 77-year-old male patient with history of mental status changes and seizure. EEG was requested to evaluate seizure activity. METHODS: Twenty electrodes were applied according to the international 10-20 electrode placement system. EKG monitoring, hyperventilation, intermittent photic stimulation, monopolar and bipolar montages are routinely utilized. The record was obtained on a digital system with video monitoring. FINDINGS: 1. Background: The patient was recorded in the awake and drowsy states. No actual sleep state was recorded. No clear posterior dominant rhythm is observed. The overall background rhythm is with diffuse slowing in the theta and delta frequencies. 2. Abnormalities: No specific epileptiform discharge or electrographic seizure is seen. Diffuse slowing in the theta and delta frequencies is throughout the entire recording. 3. Activation: Hyperventilation was performed with poor efforts. Intermittent photic stimulation was performed with photic driving. No specific epileptiform discharge or electrographic seizure induced by hyperventilation or intermittent photic stimulation. IMPRESSION: This electroencephalogram is an abnormal study for the awake and drowsy states. No actual sleep state was recorded. No clear posterior dominant rhythm is observed. The overall background rhythm is with diffuse slowing in the theta and delta frequencies. No lateralizing, specific epileptiform discharge or electrographic seizure is seen. This pattern of EEG is suggestive of diffuse encephalopathy. GURPREET MUELLER MD DR: GUERDA/keshav JOB#: [id number] / [id number] MAUREEN
[2017-11-10 15:00] VITALS: BP 132/77
--- NOTE | 2017-11-10 15:55 | PDOC ---
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 Metabolic encephalopathy. Hx of seizure. Hx of seizure and CVA in 04/09 with left side weakness per his daughter. DM HTN HLD No evidence of acute CVA this time. RECOMMENDATIONS/PLAN: Continue Keppra. Continue Vimpat.200 mg bid. Continue ASA 325 mfg daily. Continue Lipitor HS. Treat medical diseases. OT/PT Discussed with his daughter at bedside in ER on 11/06 and in ICU on 11/07. EEGs on 11/07 and 11/10 both were in consistent of encephalopathy, but no seizure activity. HISTORY OF THE PRESENT ILLNESS: 77-y-old AA male patient with above medical diseases had a seizure and CVA symptoms in 04/09 per his daughter. He was seen in [facility] and was thought seizure, but then found CVA. We do not have his medical records at the present time from . His daughter stated that he has been treated for his seizure since. He has about 1 seizure a month or two. He had another seizure observed by his daughter today described as LOC, eyes open and fixed with shaking movements in hands. His left side was weakness. He was brought to the ER of [facility]. No seizures since in the hospital, but has MS changes persistently. PAST MEDICAL HISTORY: Diabetes-Type II, High Cholesterol, Hypertension, Seizure, Stroke. PAST SURGERY HISTORY: J tube placement. ALLERGY: Reviewed. MEDICATIONS: Refer to [facility] FAMILY HISTORY: Non contributory. SOCIAL HISTORY: Lives in nursing care facility now. Denies current smoking, drinking, and illicit drug use. REVIEW OF SYSTEMS: Constitutional: No malnutrition, weight loss, cachexia. Head: No traumatic brain or head injury. Skin: No edema, or rash. Ear: No infection. Eyes: No vision loss or color blindness. Nose: No bleeding or purulent discharges. Hearing: Hearing decrease. Neck: No injury. Cardiac: HTN, HLD. Pulmonary: No COPD. GI: No GI ulcer, GI bleeding. Urinary/genital: UTI. Endocrinologic: Diabetes Mellitus. Skeletomuscular: left side weakness. Neurological: see Seizure with CVA in 04/09 per his daughter. Psychiatric: Denies drug use/abuse. Otherwise, not [id number] review of systems. PHYSICAL EXAMINATION: General appearance is subacute distress. HEENT: Normocephalic and nontraumatic. Eyes, nose, ears, and throat are unremarkable. Neck is supple. No lymphadenopathy. No crepitus. Cardiovascular: S1, S2, regular rate and rhythm. Pulmonary: Clear to auscultation bilaterally. Abdomen: Bowel sounds are positive. Abdomen is soft, nontender, and nondistended. Extremities: No rash, lesions, or edema. No restriction of range of motion NEUROLOGICAL EXAMINATION: Sleepiness but arousable. Confusion. Not oriented to time, but knows place and person. PERRL. EOMI. CN: no acute focal findings. Muscle tone: left UE increased, the rest is within normal. Muscle strength: 4 left UE, 5- the rest. DTR: 1-2 Plantar reflex: Neutral response bilaterally Gait: not examined in bed. Sensory exam: no acute abnormal findings. No acute cerebellar signs elicited. F-T-N test fine. Objective Objective Vital Signs Date Time Temp Pulse Resp B/P (MAP) Pulse Ox O2 Delivery O2 Flow Rate FiO2 11/10/17 15:49 72 136/77 11/10/17 15:25 Room Air 11/10/17 15:00 97.9 16 98 97.9 Intake and Output 11/10/17 07:00 Intake Total 150 ml Output Total 0 ml Balance 150 ml Intake Oral 0 ml Tube Feeding 150 ml Gastric Drainage Total 0 ml # Voids 3 Vitals Signs Vitals VS - Last 72 Hours, by Label Date Time Temp Pulse Resp B/P (MAP) Pulse Ox O2 Delivery O2 Flow Rate FiO2 11/10/17 15:49 72 136/77 11/10/17 15:25 Room Air 11/10/17 15:00 97.9 71 16 132/77 (95) 98 Room Air 97.9 11/10/17 11:44 Room Air 11/10/17 11:00 98.4 72 16 102/65 (77) 98 Room Air 98.4 11/10/17 09:10 69 147/85 11/10/17 09:09 69 147/85 11/10/17 09:09 69 147/85 11/10/17 09:08 69 147/85 11/10/17 08:23 95 Room Air 11/10/17 08:10 Room Air 11/10/17 07:00 98.2 69 16 147/85 (105) 98 Room Air 98.2 11/10/17 03:30 97.6 78 18 130/78 (95) 96 Room Air 97.6 11/09/17 23:24 Room Air 11/09/17 23:10 97.8 73 18 113/70 (84) 95 Room Air 97.8 11/09/17 22:11 71 127/75 11/09/17 22:03 71 127/75 11/09/17 20:00 Room Air 11/09/17 19:43 Room Air 11/09/17 19:42 Room Air 11/09/17 19:30 97.4 71 18 127/75 (92) 96 Room Air 97.4 11/09/17 17:21 63 122/59 11/09/17 16:17 Room Air 11/09/17 15:00 97.4 63 16 122/59 (80) 96 Room Air 97.4 11/09/17 14:00 63 122/59 11/09/17 12:12 Room Air 11/09/17 11:30 97.4 63 16 122/59 (80) 96 Room Air 97.4 11/09/17 11:30 97.8 71 20 141/80 (100) 99 Room Air 97.8 11/09/17 10:29 70 143/95 11/09/17 10:26 70 143/95 11/09/17 10:25 70 143/95 11/09/17 10:21 70 141/80 11/09/17 08:07 99 Room Air 11/09/17 08:00 Room Air 11/09/17 07:30 97.2 70 16 98/57 (71) 98 Room Air 97.2 Laboratory Laboratory Laboratory Tests Test 11/09/17 17:11 11/09/17 23:55 11/10/17 03:20 11/10/17 06:02 Glucose (Fingerstick) 133 mg/dL (70-99) 179 mg/dL (70-99) 150 mg/dL (70-99) White Blood Count 6.5 x10^3/uL (4.0-11.0) Red Blood Count 3.89 x10^6/uL (4.30-5.70) Hemoglobin 10.6 g/dL (13.0-17.5) Hematocrit 33.0 % (39.0-53.0) Mean Corpuscular Volume 85 fL (79-100) Mean Corpuscular Hemoglobin 27 pg (25-35) Mean Corpuscular Hemoglobin Concent 32 g/dL (31-37) Red Cell Distribution Width 19.0 % (11.5-14.5) Platelet Count 265 x10^3/uL (140-400) Neutrophils (%) (Auto) 72 % (31-73) Lymphocytes (%) (Auto) 18 % (24-48) Monocytes (%) (Auto) 7 % (0-9) Eosinophils (%) (Auto) 2 % (0-3) Basophils (%) (Auto) 1 % (0-3) Neutrophils # (Auto) 4.7 x10^3uL (1.8-7.7) Lymphocytes # (Auto) 1.2 x10^3/uL (1.0-4.8) Monocytes # (Auto) 0.4 x10^3/uL (0.0-1.1) Eosinophils # (Auto) 0.2 x10^3/uL (0.0-0.7) Basophils # (Auto) 0.1 x10^3/uL (0.0-0.2) Sodium Level 143 mmol/L (136-145) Potassium Level 3.7 mmol/L (3.5-5.1) Chloride Level 104 mmol/L (98-107) Carbon Dioxide Level 29 mmol/L (21-32) Anion Gap 10 (6-14) Blood Urea Nitrogen 25 mg/dL (8-26) Creatinine 0.9 mg/dL (0.7-1.3) Estimated GFR (Cockcroft-Gault) 99.3 Glucose Level 175 mg/dL (70-99) Calcium Level 8.6 mg/dL (8.5-10.1) Test 11/10/17 12:00 11/10/17 12:04 Urine Collection Type Unknown Urine Color Yellow Urine Clarity Cloudy Urine pH 6.0 Urine Specific [place] 1.020 Urine Protein 30 mg/dL (NEG-TRACE) Urine Glucose (UA) Negative mg/dL (NEG) Urine Ketones (Stick) Negative mg/dL (NEG) Urine Blood Negative (NEG) Urine Nitrite Negative (NEG) Urine Bilirubin Negative (NEG) Urine Urobilinogen Dipstick 0.2 mg/dL (0.2 mg/dL) Urine Leukocyte Esterase Large (NEG) Urine RBC 0 /HPF (0-2) Urine WBC >40 /HPF (0-4) Urine Bacteria Moderate /HPF (0-FEW) Urine Mucus Slight /LPF Urine Yeast Present /HPF Urine Opiates Screen Neg (NEG) Urine Methadone Screen Neg (NEG) Urine Barbiturates Neg (NEG) Urine Phencyclidine Screen Neg (NEG) Urine Amphetamine/Methamphetamine Neg (NEG) Urine Benzodiazepines Screen Neg (NEG) Urine Cocaine Screen Neg (NEG) Urine Cannabinoids Screen Neg (NEG) Urine Ethyl Alcohol Neg (NEG) Glucose (Fingerstick) 170 mg/dL (70-99) Comment Review of Relevant I have reviewed the following items bob (where applicable) has been applied. GURPREET MUELLER MD Nov 10, 2017 15:55
[2017-11-10 19:35] VITALS: BP 112/68
[2017-11-10] MEDS: VENLAFAXINE 50 MG TABLET. PO SCH (20:37)
[2017-11-10] MEDS: ATORVASTATIN CALCIUM 40 MG TABLET. PO SCH (20:38)
[2017-11-10] MEDS: HYDROcodone/APAP 5/325MG 1 TAB TABLET PO PRN (20:39)
[2017-11-10] MEDS: GABAPENTIN 300 MG CAPSULE. PO SCH (20:39)
[2017-11-10] MEDS: TERAZOSIN 1 MG CAPSULE. PO SCH (20:39)
[2017-11-10 22:30] VITALS: BP 124/74
[2017-11-11] MEDS: IPRATRPIUM/ALBUTEROL 0.5/2.5MG 3 ML NEBU. NEB SCH ×4 (03:22→15:42)
[2017-11-11 03:40] VITALS: BP 124/78
[2017-11-11] MEDS: INSULIN ASPART 300 UNITS/3 ML INSULN.PEN SQ SCH ×2 (05:42→12:00)
[2017-11-11 07:00] VITALS: BP 121/73
[2017-11-11] MEDS: BUDESONIDE 0.5 MG/2 ML NEBU. NEB SCH (07:54)
[2017-11-11] MEDS: PANTOPRAZOLE IV PUSH 40 MG VIAL. IVP SCH (09:04)
[2017-11-11] MEDS: CHLORHEXIDINE 0.12% 15 ML MOUTHWASH. MM SCH (09:04)
[2017-11-11] MEDS: DOCUSATE 100 MG/10 ML SOLUTION. PO SCH (09:05)
[2017-11-11] MEDS: CARVEDILOL 12.5 MG TABLET. PO SCH (09:06)
[2017-11-11] MEDS: metFORMIN 500 MG TABLET PO SCH (09:06)
[2017-11-11] MEDS: SPIRONOLACTONE 25 MG TABLET PO SCH (09:06)
[2017-11-11] MEDS: amLODIPine BESYLATE 10 MG TABLET PO SCH (09:06)
[2017-11-11] MEDS: hydroCHLOROthiazide 25 MG TABLET PO SCH (09:06)
[2017-11-11] MEDS: LACTOBACILLUS RHAMNOSUS GG 1 CAPSULE. PO SCH (09:06)
[2017-11-11] MEDS: LACOSAMIDE 200 MG TABLET PO SCH (09:06)
[2017-11-11] MEDS: LISINOPRIL 40 MG TABLET. PO SCH (09:06)
[2017-11-11] MEDS: ZINC SULFATE 220 MG CAPSULE. PO SCH (09:07)
[2017-11-11] MEDS: ASPIRIN 325 MG TABLET PO SCH (09:07)
[2017-11-11] MEDS: POLYVINYL ALCOHOL 1.4% OPHTH SOLUTION 15ML BOTTLE. OU SCH (09:13)
[2017-11-11 11:00] VITALS: BP 102/65
--- NOTE | 2017-11-11 14:20 | PDOC ---
PROGRESS NOTES Subjective Subjective awake Objective Objective Vital Signs Date Time Temp Pulse Resp B/P (MAP) Pulse Ox O2 Delivery O2 Flow Rate FiO2 11/11/17 12:02 Room Air 11/11/17 11:00 98.4 85 16 102/65 (77) 98 98.4 Intake and Output 11/11/17 07:00 Intake Total 803 ml Balance 803 ml Intake Oral 0 ml Tube Feeding 533 ml Other 270 ml # Voids 4 # Bowel Movements 1 Physical Exam Abdomen: Normal bowel sounds, Soft Heart: Regular rate, Normal S1, Normal S2 Extremities: No edema HEENT: Atraumatic Lungs: Clear to auscultation Neck: Supple COMMENT ltside weakness from prior stroke Diagnosis Problem List Problems Medical Problems: (1) Seizure Status: Acute (2) Raymond's paralysis (postepileptic) Status: Acute Assessment Assessment Problems Medical Problems: (1) Seizure Status: Acute (2) Raymond's paralysis (postepileptic) Status: Acute FINAL IMPRESSION: metabolic encephalopathy 1. Change in mental status, looks like more of a postictal change rather any new stroke. 2. MRI shows only old stroke. No new stroke. 3. History of previous cerebrovascular accident. 4. Coronary artery disease. 5. Hypertension. 6. Diabetes. 7. Hyperlipidemia. 8. History of prostate cancer. 9. J-tube for medications and also history of tracheostomy, which was closed. 10 .Seizures on vampet+keppra PLAN: [facility]. spoke with pts daughter pt/ot/rehab. daughter thinks keppra high dose (1500 bid) causing problems . dec to 1300 from 1500 bid and see how he does, he was getting 1250 bid at [facility] prior to this admission labs ok same dose vampet 200 bid vedio swallow no aspiration ,slow transit. seeing speech therapy.speech working with oral feedings MRI brain no new cva no more seizures noted. rehab consult tube feedings J tube Problems: Plan Plan of Care Problems Medical Problems: (1) Seizure Status: Acute (2) Raymond's paralysis (postepileptic) Status: Acute Comment Review of Relevant I have reviewed the following items bob (where applicable) has been applied. Labs Laboratory Tests Test 11/10/17 23:44 11/11/17 05:41 11/11/17 11:54 Glucose (Fingerstick) 167 mg/dL (70-99) 136 mg/dL (70-99) 141 mg/dL (70-99) Medications Current Medications Lansoprazole (Prevacid) 30 mg DAILYAC FT ; Start 11/12/17 at 07:30 Vitals/I & O Vital Sign - Last 24 Hours 11/10/17 11/10/17 11/10/17 11/10/17 15:00 15:25 15:49 17:26 Temp 97.9 97.9 Pulse 71 72 72 Resp 16 B/P (MAP) 132/77 (95) 136/77 136/77 Pulse Ox 98 O2 Delivery Room Air Room Air 11/10/17 11/10/17 11/10/17 11/10/17 19:15 19:17 19:35 20:00 Temp 97.8 97.8 Pulse 87 Resp 18 B/P (MAP) 112/68 (83) Pulse Ox 97 97 97 O2 Delivery Room Air Room Air Room Air Room Air 11/10/17 11/10/17 11/10/17 11/10/17 20:38 20:39 20:39 22:30 Temp 97.8 97.8 Pulse 87 87 89 Resp 18 18 B/P (MAP) 112/68 112/68 124/74 (91) Pulse Ox 98 O2 Delivery Room Air Room Air 11/11/17 11/11/17 11/11/17 11/11/17 03:40 07:00 07:54 08:00 Temp 98.0 98.5 98.0 98.5 Pulse 75 87 Resp 18 18 B/P (MAP) 124/78 (93) 121/73 (89) Pulse Ox 96 97 O2 Delivery Room Air Room Air Room Air Room Air 11/11/17 11/11/17 11/11/17 11/11/17 09:05 09:06 09:06 09:06 Pulse 87 87 87 87 B/P (MAP) 121/73 121/73 121/73 121/73 11/11/17 11/11/17 11:00 12:02 Temp 98.4 98.4 Pulse 85 Resp 16 B/P (MAP) 102/65 (77) Pulse Ox 98 O2 Delivery Room Air Room Air Intake and Output 11/10/17 11/10/17 11/11/17 15:00 23:00 07:00 Intake Total 75 ml 195 ml 533 ml Balance 75 ml 195 ml 533 ml Nutrition Consultation Dietary Evaluation: Recommendations by RD: Increase Calorie Intake Comments: REC Diabetisource AC@goal rate 50 ml/hr w/75 ml water flushes q4 hrs or flushes per MD Expected Outcomes/Goals: TF initiated and infusing to meet > 65% est needs Malnutrition Findings: Food and Nutrition Intake (Mod: <75% est energy req 7days Body Fat Depletion (Non Severe: Mild Depletion Weight Status: Appropriate CANDACE AHUMADA MD Nov 11, 2017 14:20
[2017-11-11 15:00] VITALS: BP 122/59
[2017-11-11] MEDS: ENOXAPARIN 40 MG/0.4 ML SYRINGE. SQ SCH (15:28)
--- NOTE | 2017-11-11 15:42 | PDOC ---
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 Metabolic encephalopathy. Hx of seizure. Hx of seizure and CVA in 04/09 with left side weakness per his daughter. DM HTN HLD Vit D insufficiency. No evidence of acute CVA this time. RECOMMENDATIONS/PLAN: Continue Keppra. Continue Vimpat.200 mg bid. Continue ASA 325 mfg daily. Continue Lipitor HS. Vit D 3 1000 units daily. Calcium 250 mg bid. Treat medical diseases. OT/PT Discussed with his on 11/11 at bedside. EEGs on 11/07 and 11/10 both were in consistent of encephalopathy, but no seizure activity. HISTORY OF THE PRESENT ILLNESS: 77-y-old AA male patient with above medical diseases had a seizure and CVA symptoms in 04/09 per his daughter. He was seen in [facility] and was thought seizure, but then found CVA. We do not have his medical records at the present time from . His daughter stated that he has been treated for his seizure since. He has about 1 seizure a month or two. He had another seizure observed by his daughter today described as LOC, eyes open and fixed with shaking movements in hands. His left side was weakness. He was brought to the ER of [facility]. No seizures since in the hospital, but has MS changes persistently. PAST MEDICAL HISTORY: Diabetes-Type II, High Cholesterol, Hypertension, Seizure, Stroke. PAST SURGERY HISTORY: J tube placement. ALLERGY: Reviewed. MEDICATIONS: Refer to [facility] FAMILY HISTORY: Non contributory. SOCIAL HISTORY: Lives in nursing care facility now. Denies current smoking, drinking, and illicit drug use. REVIEW OF SYSTEMS: Constitutional: No malnutrition, weight loss, cachexia. Head: No traumatic brain or head injury. Skin: No edema, or rash. Ear: No infection. Eyes: No vision loss or color blindness. Nose: No bleeding or purulent discharges. Hearing: Hearing decrease. Neck: No injury. Cardiac: HTN, HLD. Pulmonary: No COPD. GI: No GI ulcer, GI bleeding. Urinary/genital: UTI. Endocrinologic: Diabetes Mellitus. Skeletomuscular: left side weakness. Neurological: see Seizure with CVA in 04/09 per his daughter. Psychiatric: Denies drug use/abuse. Otherwise, not [id number] review of systems. PHYSICAL EXAMINATION: General appearance is subacute distress. HEENT: Normocephalic and nontraumatic. Eyes, nose, ears, and throat are unremarkable. Neck is supple. No lymphadenopathy. No crepitus. Cardiovascular: S1, S2, regular rate and rhythm. Pulmonary: Clear to auscultation bilaterally. Abdomen: Bowel sounds are positive. Abdomen is soft, nontender, and nondistended. Extremities: No rash, lesions, or edema. No restriction of range of motion NEUROLOGICAL EXAMINATION: Awake. Confusion. Not oriented to time, but knows place and person. PERRL. EOMI. CN: no acute focal findings. Muscle tone: left UE increased, the rest is within normal. Muscle strength: 4- left UE, 5- the rest. DTR: 1-2 Plantar reflex: Neutral response bilaterally Gait: not examined in bed. Sensory exam: no acute abnormal findings. No acute cerebellar signs elicited. F-T-N test fine. Objective Objective Vital Signs Date Time Temp Pulse Resp B/P (MAP) Pulse Ox O2 Delivery O2 Flow Rate FiO2 11/11/17 14:00 85 102/65 11/11/17 12:02 Room Air 11/11/17 11:00 98.4 16 98 98.4 Intake and Output 11/11/17 07:00 Intake Total 803 ml Balance 803 ml Intake Oral 0 ml Tube Feeding 533 ml Other 270 ml # Voids 4 # Bowel Movements 1 Vitals Signs Vitals VS - Last 72 Hours, by Label Date Time Temp Pulse Resp B/P (MAP) Pulse Ox O2 Delivery O2 Flow Rate FiO2 11/11/17 14:00 85 102/65 11/11/17 12:02 Room Air 11/11/17 11:00 98.4 85 16 102/65 (77) 98 Room Air 98.4 11/11/17 09:06 87 121/73 11/11/17 09:06 87 121/73 11/11/17 09:06 87 121/73 11/11/17 09:05 87 121/73 11/11/17 08:00 Room Air 11/11/17 07:54 Room Air 11/11/17 07:00 98.5 87 18 121/73 (89) 97 Room Air 98.5 11/11/17 03:40 98.0 75 18 124/78 (93) 96 Room Air 98.0 11/10/17 22:30 97.8 89 18 124/74 (91) 98 Room Air 97.8 11/10/17 20:39 18 Room Air 11/10/17 20:39 87 112/68 11/10/17 20:38 87 112/68 11/10/17 20:00 Room Air 11/10/17 19:35 97.8 87 18 112/68 (83) 97 Room Air 97.8 11/10/17 19:17 97 Room Air 11/10/17 19:15 97 Room Air 11/10/17 17:26 72 136/77 11/10/17 15:49 72 136/77 11/10/17 15:25 Room Air 11/10/17 15:00 97.9 71 16 132/77 (95) 98 Room Air 97.9 11/10/17 11:44 Room Air 11/10/17 11:00 98.4 72 16 102/65 (77) 98 Room Air 98.4 11/10/17 09:10 69 147/85 11/10/17 09:09 69 147/85 11/10/17 09:09 69 147/85 11/10/17 09:08 69 147/85 11/10/17 08:23 95 Room Air 11/10/17 08:10 Room Air 11/10/17 07:00 98.2 69 16 147/85 (105) 98 Room Air 98.2 Laboratory Laboratory Laboratory Tests Test 11/10/17 23:44 11/11/17 05:41 11/11/17 11:54 Glucose (Fingerstick) 167 mg/dL (70-99) 136 mg/dL (70-99) 141 mg/dL (70-99) Medication Medications Current Medications Lansoprazole (Prevacid) 30 mg DAILYAC FT ; Start 11/12/17 at 07:30 Comment Review of Relevant I have reviewed the following items bob (where applicable) has been applied. GURPREET MUELLER MD Nov 11, 2017 15:42
[2017-11-11] MEDS ORDERED: CHOLECALCIFEROL (VITAMIN D3) 1,000 UNIT TABLET PO SCH (17:00)
--- NOTE | 2017-11-11 17:51 | PDOC ---
PROGRESS NOTES Subjective Subjective No new complaints. Objective Objective Vital Signs Date Time Temp Pulse Resp B/P (MAP) Pulse Ox O2 Delivery O2 Flow Rate FiO2 11/11/17 15:42 Room Air 11/11/17 15:00 98.2 63 16 122/59 (80) 96 98.2 Intake and Output 11/11/17 07:00 Intake Total 803 ml Balance 803 ml Intake Oral 0 ml Tube Feeding 533 ml Other 270 ml # Voids 4 # Bowel Movements 1 Physical Exam Physical Exam He is supine in bed and seems comfortable,awake but continues with generalized muscle weakness and mobility and self care limitations. Assessment Assessment Problems Medical Problems: (1) Seizure Status: Acute (2) Raymond's paralysis (postepileptic) Status: Acute Plan Plan of Care To SNF when medically stable. Comment Review of Relevant I have reviewed the following items bob (where applicable) has been applied. Labs Laboratory Tests Test 11/09/17 23:55 11/10/17 03:20 11/10/17 06:02 11/10/17 12:00 Glucose (Fingerstick) 179 mg/dL (70-99) 150 mg/dL (70-99) White Blood Count 6.5 x10^3/uL (4.0-11.0) Red Blood Count 3.89 x10^6/uL (4.30-5.70) Hemoglobin 10.6 g/dL (13.0-17.5) Hematocrit 33.0 % (39.0-53.0) Mean Corpuscular Volume 85 fL (79-100) Mean Corpuscular Hemoglobin 27 pg (25-35) Mean Corpuscular Hemoglobin Concent 32 g/dL (31-37) Red Cell Distribution Width 19.0 % (11.5-14.5) Platelet Count 265 x10^3/uL (140-400) Neutrophils (%) (Auto) 72 % (31-73) Lymphocytes (%) (Auto) 18 % (24-48) Monocytes (%) (Auto) 7 % (0-9) Eosinophils (%) (Auto) 2 % (0-3) Basophils (%) (Auto) 1 % (0-3) Neutrophils # (Auto) 4.7 x10^3uL (1.8-7.7) Lymphocytes # (Auto) 1.2 x10^3/uL (1.0-4.8) Monocytes # (Auto) 0.4 x10^3/uL (0.0-1.1) Eosinophils # (Auto) 0.2 x10^3/uL (0.0-0.7) Basophils # (Auto) 0.1 x10^3/uL (0.0-0.2) Sodium Level 143 mmol/L (136-145) Potassium Level 3.7 mmol/L (3.5-5.1) Chloride Level 104 mmol/L (98-107) Carbon Dioxide Level 29 mmol/L (21-32) Anion Gap 10 (6-14) Blood Urea Nitrogen 25 mg/dL (8-26) Creatinine 0.9 mg/dL (0.7-1.3) Estimated GFR (Cockcroft-Gault) 99.3 Glucose Level 175 mg/dL (70-99) Calcium Level 8.6 mg/dL (8.5-10.1) Urine Collection Type Unknown Urine Color Yellow Urine Clarity Cloudy Urine pH 6.0 Urine Specific [place] 1.020 Urine Protein 30 mg/dL (NEG-TRACE) Urine Glucose (UA) Negative mg/dL (NEG) Urine Ketones (Stick) Negative mg/dL (NEG) Urine Blood Negative (NEG) Urine Nitrite Negative (NEG) Urine Bilirubin Negative (NEG) Urine Urobilinogen Dipstick 0.2 mg/dL (0.2 mg/dL) Urine Leukocyte Esterase Large (NEG) Urine RBC 0 /HPF (0-2) Urine WBC >40 /HPF (0-4) Urine Bacteria Moderate /HPF (0-FEW) Urine Mucus Slight /LPF Urine Yeast Present /HPF Urine Opiates Screen Neg (NEG) Urine Methadone Screen Neg (NEG) Urine Barbiturates Neg (NEG) Urine Phencyclidine Screen Neg (NEG) Urine Amphetamine/Methamphetamine Neg (NEG) Urine Benzodiazepines Screen Neg (NEG) Urine Cocaine Screen Neg (NEG) Urine Cannabinoids Screen Neg (NEG) Urine Ethyl Alcohol Neg (NEG) Test 11/10/17 12:04 11/10/17 23:44 11/11/17 05:41 11/11/17 11:54 Glucose (Fingerstick) 170 mg/dL (70-99) 167 mg/dL (70-99) 136 mg/dL (70-99) 141 mg/dL (70-99) Laboratory Tests Test 11/10/17 23:44 11/11/17 05:41 11/11/17 11:54 Glucose (Fingerstick) 167 mg/dL (70-99) 136 mg/dL (70-99) 141 mg/dL (70-99) Medications Current Medications Iohexol (Omnipaque 300 Mg/ml) 75 ml 1X ONCE IV ; Start 11/06/17 at 15:45; Stop 11/06/17 at 15:48; Status DC Info (Do NOT chart on this entry -- for MONITORING) 1 each PRN DAILY PRN MC SEE COMMENTS; Start 11/06/17 at 16:00; Stop 11/08/17 at 15:59; Status DC Ondansetron HCl (Zofran) 4 mg PRN Q8HRS PRN IV NAUSEA/VOMITING; Start at 18:00; Stop 11/07/17 at 17:59; Status DC Fentanyl Citrate (Fentanyl 2ml Vial) 50 mcg PRN Q1HR PRN IV PAIN; Start at 18:00; Stop 11/07/17 at 17:59; Status DC Levetiracetam 500 mg/Dextrose 105 ml @ 420 mls/hr Q12HR IV Last administered on 11/08/17 09:40; Start 11/06/17 at 21:00; Stop 11/08/17 at 12:18; Status DC Aspirin (Aide Aspirin) 325 mg 1X ONCE PO Last administered on 11/07/17 00: 29; Start 11/06/17 at 18:45; Stop 11/06/17 at 19:08; Status DC Gadobutrol (Gadavist) 7 mmol 1X ONCE IV ; Start 11/06/17 at 22:00; Stop 11/06 at 22:01; Status DC Insulin Aspart (NovoLOG) 0-7 UNITS TIDWMEALS SQ Last administered on 11:49; Start 11/07/17 at 08:00; Stop 11/07/17 at 15:17; Status DC Dextrose (Dextrose 50%-Water Syringe) 12.5 gm PRN Q15MIN PRN IV SEE COMMENTS; Start 11/06/17 at 22:15; Stop 11/11/17 at 16:41; Status DC Lacosamide (Vimpat) 200 mg BID PO Last administered on 11/08/17 09:41; Start 11/07/17 at 00:30; Stop 11/08/17 at 21:40; Status DC Hydralazine HCl (Apresoline) 75 mg TID PO Last administered on 11/11/17 09:05 ; Start 11/07/17 at 10:30; Stop 11/11/17 at 16:41; Status DC Spironolactone (Aldactone) 12.5 mg DAILY PO Last administered on 11/11/17 09: 06; Start 11/07/17 at 10:30; Stop 11/11/17 at 16:41; Status DC Lactobacillus Rhamnosus (Culturelle) 1 cap BID PO Last administered on 09:06; Start 11/07/17 at 10:30; Stop 11/11/17 at 16:41; Status DC Zinc Sulfate (Orazinc) 220 mg DAILY PO Last administered on 11/11/17 09:07; Start 11/07/17 at 10:30; Stop 11/11/17 at 16:41; Status DC Metformin HCl (Glucophage) 500 mg BIDWMEALS PO Last administered on 11/11/17 09:06; Start 11/09/17 at 08:00; Stop 11/11/17 at 16:41; Status DC Pantoprazole Sodium (PROTONIX VIAL for IV PUSH) 40 mg DAILYAC IVP Last administered on 11/11/17 09:04; Start 11/07/17 at 10:30; Stop 11/11/17 at 14 :00; Status DC Carvedilol (Coreg) 25 mg BIDWMEALS PO Last administered on 11/11/17 09:06; Start 11/07/17 at 10:30; Stop 11/11/17 at 16:41; Status DC Aspirin (Aide Aspirin) 325 mg DAILYWBKFT PO Last administered on 11/11/17 09 :07; Start 11/07/17 at 10:30; Stop 11/11/17 at 16:41; Status DC Lisinopril (Prinivil) 40 mg DAILY PO Last administered on 11/11/17 09:06; Start 11/07/17 at 10:30; Stop 11/11/17 at 16:41; Status DC Terazosin HCl (Hytrin) 2 mg QHS PO Last administered on 11/10/17 20:39; Start 11/07/17 at 21:00; Stop 11/11/17 at 16:41; Status DC Docusate Sodium (Colace Solution) 100 mg PRN DAILY PRN PO CONSTIPATION; Start 11/07/17 at 09:45; Stop 11/11/17 at 16:41; Status DC Amlodipine Besylate (Norvasc) 10 mg DAILY PO Last administered on 11/11/17 09 :06; Start 11/07/17 at 10:30; Stop 11/11/17 at 16:41; Status DC Venlafaxine HCl (Effexor) 75 mg HS PO Last administered on 11/10/17 20:37; Start 11/07/17 at 21:00; Stop 11/11/17 at 16:41; Status DC Atorvastatin Calcium (Lipitor) 40 mg QHS PO Last administered on 11/10/17 20: 38; Start 11/07/17 at 21:00; Stop 11/11/17 at 16:41; Status DC Amlodipine Besylate (Norvasc) 10 mg DAILY PO ; Start 11/07/17 at 11:00; Stop 11/07/17 at 13:00; Status DC Aspirin (Aide Aspirin) 325 mg DAILY PO ; Start 11/07/17 at 11:00; Stop at 13:00; Status DC Atorvastatin Calcium (Lipitor) 10 mg QHS PO ; Start 11/07/17 at 21:00; Stop at 21:00; Status DC Chlorhexidine Gluconate (Peridex) 15 ml BID MM Last administered on 11/11/17 09:04; Start 11/07/17 at 11:00; Stop 11/11/17 at 16:41; Status DC Docusate Sodium (Colace Solution) 50 mg DAILY PO Last administered on 09:05; Start 11/07/17 at 11:00; Stop 11/11/17 at 16:41; Status DC Hydralazine HCl (Apresoline) 75 mg TID PO ; Start 11/07/17 at 11:00; Stop at 13:00; Status DC Hydrochlorothiazide (Hydrodiuril) 25 mg DAILY PO Last administered on 09:06; Start 11/07/17 at 11:00; Stop 11/11/17 at 16:41; Status DC Acetaminophen/ Hydrocodone Bitart (Lortab 5/325) 1 tab PRN Q6HRS PRN PO PAIN Last administered on 11/10/17 20:39; Start 11/07/17 at 10:15; Stop 11/11/17 at 16:41; Status DC Ipratropium [place] (Atrovent) 0.5 mg Q4HRS IH ; Start 11/07/17 at 12:00; Stop 11/07/17 at 12:00; Status DC Lisinopril (Prinivil) 40 mg DAILY PO ; Start 11/07/17 at 11:00; Stop 11/07/17 at 13:00; Status DC Metformin HCl (Glucophage) 500 mg BIDWMEALS PO ; Start 11/07/17 at 12:00; Stop 11/07/17 at 13:01; Status DC Zinc Sulfate (Orazinc) 220 mg DAILY PO Last administered on 11/07/17 11:46; Start 11/07/17 at 11:00; Stop 11/07/17 at 13:01; Status DC Zinc Sulfate (Orazinc) 220 mg DAILY PO ; Start 11/08/17 at 09:00; Stop at 09:00; Status DC Non-Formulary Medication 1 vial Q4HRS NEB ; Start 11/07/17 at 12:00; Stop at 12:00; Status DC Non-Formulary Medication 1 vial BID NEB ; Start 11/07/17 at 21:00; Stop at 21:00; Status DC Artificial Tears (Artificial Tears) 1 drop QID OU Last administered on 09:13; Start 11/07/17 at 10:45; Stop 11/11/17 at 16:41; Status DC Carvedilol (Coreg) 25 mg BIDWMEALS PO ; Start 11/07/17 at 11:30; Stop at 13:01; Status DC Gabapentin (Neurontin) 300 mg QHS PO Last administered on 11/10/17 20:39; Start 11/07/17 at 21:00; Stop 11/11/17 at 16:41; Status DC Non-Formulary Medication 1 tab QHS PO ; Start 11/07/17 at 21:00; Stop at 21:00; Status DC Non-Formulary Medication 100 mg DAILY PO ; Start 11/08/17 at 09:00; Status UNV Terazosin HCl (Hytrin) 2 mg QHS PO ; Start 11/07/17 at 21:00; Status Cancel Venlafaxine HCl (Effexor) 75 mg QHS PO ; Start 11/07/17 at 21:00; Status Cancel Enoxaparin Sodium (Lovenox 40mg Syringe) 40 mg Q24H SQ Last administered on 15:28; Start 11/07/17 at 11:00; Stop 11/11/17 at 16:41; Status DC Albuterol/ Ipratropium (Duoneb) 3 ml Q4HRS NEB Last administered on 11/11/17 15:42; Start 11/07/17 at 12:00; Stop 11/11/17 at 16:41; Status DC Budesonide (Pulmicort) 0.5 mg RTBID NEB Last administered on 11/11/17 07:54; Start 11/07/17 at 12:00; Stop 11/11/17 at 16:41; Status DC Barium Sulfate (Varibar Thin Liquid [place]) 148 gm 1X ONCE PO Last administered on 11/07/17 14:12; Start 11/07/17 at 12:15; Stop 11/07/17 at 12 :18; Status DC Insulin Aspart (NovoLOG) 0-7 UNITS Q6HRS SQ Last administered on 11/10/17 23: 46; Start 11/07/17 at 18:00; Stop 11/11/17 at 16:41; Status DC Levetiracetam (Keppra) 1,500 mg BID PEG Last administered on 11/08/17 22:14; Start 11/08/17 at 21:00; Stop 11/09/17 at 11:22; Status DC Lacosamide (Vimpat) 200 mg BID PO Last administered on 11/11/17 09:06; Start 11/08/17 at 21:45; Stop 11/11/17 at 16:41; Status DC Levetiracetam (Keppra) 1,300 mg BID PEG Last administered on 11/11/17t 09:07; Start 11/09/17 at 12:00; Stop 11/11/17 at 16:41; Status DC Lansoprazole (Prevacid) 30 mg DAILYAC FT ; Start 11/12/17 at 07:30; Stop 11/12 at 07:30; Status DC Vitamin D (Vitamin D3) 1,000 unit DAILY PO ; Start 11/11/17 at 17:00; Stop at 17:00; Status DC Calcium Carbonate/ Glycine (Oscal) 250 mg BID PO ; Start 11/11/17 at 21:00; Stop 11/11/17 at 21:00; Status DC Active Scripts Active Hydrochlorothiazide Tablet (Hydrochlorothiazide) 25 Mg Tablet 1 Tab PO DAILY Reported Ipratropium [place] 0.2 Mg/1 Ml Solution 0.5 Mg IH Q4HRS Refresh Optive Eye Drops (Carboxymethylcellulos/Glycerin) 15 Ml Drops 1 Drop EACHEYE QID Milk Of Magnesia (Magnesium Hydroxide) 2,400 Mg/10 Ml Oral.susp Unknown Dose PO Pulmicort (Budesonide) 0.25 Mg/2 Ml Ampul.neb 1 Vial NEB BID Peridex (Chlorhexidine Gluconate) 15 Ml Mouthwash 15 Ml PO BID Lipitor (Atorvastatin Calcium) 10 Mg Tablet 1 Tab PO QHS Brovana (Arformoterol Tartrate) 15 Mcg/2 Ml Vial.neb 15 Mcg IH Venlafaxine Hcl 37.5 Mg Tablet 2 Tab PO HS Gabapentin Oral Solution (Gabapentin) 300 Mg/6 Ml Solution 6 Ml PO HS Amlodipine Besylate 10 Mg Tablet 10 Mg PO DAILY Docusate Sodium 50 Mg/5 Ml Liquid Unknown Dose PO Terazosin Hcl 2 Mg Capsule 1 Cap PO QHS Modafinil 100 Mg Tablet 100 Mg PO DAILY Lisinopril 40 Mg Tablet 1 Tab PO DAILY Aspirin 325 Mg Tablet 1 Tab PO DAILY Carvedilol 25 Mg Tablet 1 Tab PO BID [protonnix packet] Unknown Dose Metformin Hcl 500 Mg Tablet 500 Mg PO BIDWMEALS Emanuel-In-Maru (Ferrous Sulfate) 15 Mg/1 Ml Drops 15 Mg PO Zinc Sulfate 220 Mg Capsule 220 Mg PO Zinc Sulfate 220 Mg Capsule 220 Mg PO Culturelle Capsule (L. Rhamnosus GG/Inulin) 1 Each Cap.sprink 1 Each PO Aldactazide 25-25 Tablet (Spironolact/Hydrochlorothiazid) 1 Each Tablet 0.5 Each PO Acetaminophen 325 Mg Capsule 325 Mg PO [place] 5-325 Tablet (Acetaminophen/Hydrocodone Bitart) 1 Each Tablet 1 Tab PO PRN Q6HRS PRN Hydralazine Hcl 25 Mg Tablet 75 Mg PO TID Albuterol Sulfate Conc Neb Soln (Albuterol Sulfate) 2.5 Mg/0.5 Ml Vial.neb 1 Vial NEB Q4HRS Melatonin 3 Mg Tablet 1 Tab PO QHS Biofreeze (Menthol) 118 Ml Gel..ml. 118 Ml TP Vitals/I & O Vital Sign - Last 24 Hours 11/10/17 11/10/17 11/10/17 11/10/17 19:15 19:17 19:35 20:00 Temp 97.8 97.8 Pulse 87 Resp 18 B/P (MAP) 112/68 (83) Pulse Ox 97 97 97 O2 Delivery Room Air Room Air Room Air Room Air 11/10/17 11/10/17 11/10/17 11/10/17 20:38 20:39 20:39 22:30 Temp 97.8 97.8 Pulse 87 87 89 Resp 18 18 B/P (MAP) 112/68 112/68 124/74 (91) Pulse Ox 98 O2 Delivery Room Air Room Air 11/11/17 11/11/17 11/11/17 11/11/17 03:40 07:00 07:54 08:00 Temp 98.0 98.5 98.0 98.5 Pulse 75 87 Resp 18 18 B/P (MAP) 124/78 (93) 121/73 (89) Pulse Ox 96 97 O2 Delivery Room Air Room Air Room Air Room Air 11/11/17 11/11/17 11/11/17 11/11/17 09:05 09:06 09:06 09:06 Pulse 87 87 87 87 B/P (MAP) 121/73 121/73 121/73 121/73 11/11/17 11/11/17 11/11/17 11/11/17 11:00 12:02 14:00 15:00 Temp 98.4 98.2 98.4 98.2 Pulse 85 85 63 Resp 16 16 B/P (MAP) 102/65 (77) 102/65 122/59 (80) Pulse Ox 98 96 O2 Delivery Room Air Room Air Room Air 11/11/17 15:42 O2 Delivery Room Air Intake and Output 11/10/17 11/10/17 11/11/17 15:00 23:00 07:00 Intake Total 75 ml 195 ml 533 ml Balance 75 ml 195 ml 533 ml Nutrition Consultation Dietary Evaluation: Recommendations by RD: Increase Calorie Intake Comments: REC Diabetisource AC@goal rate 50 ml/hr w/75 ml water flushes q4 hrs or flushes per MD Expected Outcomes/Goals: TF initiated and infusing to meet > 65% est needs Malnutrition Findings: Food and Nutrition Intake (Mod: <75% est energy req 7days Body Fat Depletion (Non Severe: Mild Depletion Weight Status: Appropriate TEE MELENDREZ MD Nov 11, 2017 17:51
[2017-11-11] MEDS ORDERED: CALCIUM CARBONATE 500 MG TABLET PO SCH (21:00)
[2017-11-12] MEDS ORDERED: LANSOPRAZOLE 30 MG TAB.RAP.DR FT SCH (07:30)
--- NOTE | 2017-11-20 10:15 | PDOC ---
Provider Note Provider Note Discharge summary dictated. #[id number] CANDACE AHUMADA MD Nov 20, 2017 10:15
--- NOTE | 2017-11-20 10:47 | DS ---
DATE OF DISCHARGE: 11/11/2017 REASON FOR ADMISSION TO THE HOSPITAL: Mental status changes, possible stroke versus postictal. CONSULTATIONS: Dr. Goodman. PROCEDURES DONE: CT head, MRI of the brain, EEG x 2, video swallow and other consultation with Dr. Moody. HOSPITAL COURSE: The patient is a 77-year-old male who has history of previous stroke 6 months ago and he also has history of seizures; so he has been in and out of the hospitals multiple places, rehabilitation. He was on tracheostomy and ventilator in the past. He was successfully weaned off. Now finally, he is at [facility]. He has a feeding tube and was noticed to have a change in mental status, weaker on the left side than usually, brought to the hospital, and he is alert. Seizure medications include Keppra and Vimpat. The patient was seen by Neurology with change in mental status. The patient would see, look at you, does not talk much. 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 The patient had a CT head, did not show any new stroke. 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 The patient had EEG x 2 which did not show any seizure activities. The patient's Keppra was increased from [id number], but the patient was having problems, not able to focus, cut down to 1300 twice daily. Vimpat 200 b.i.d., continue the same dose. The patient was seen by Dr. Moody from Rehab and also Speech, had a video swallow study prolonged oral stasis, no definitive aspiration, but the Speech did not feel he is safe enough to swallow, recommending supervised feeding with therapies. The patient was continued on tube feedings, J-tube, and is tolerating the J-tube feedings well. The patient's condition is back to his baseline, left hemiparesis secondary to old stroke. No CVA. EEG, no active seizure activities. On the whole, it was felt that patient could be discharged back to [facility], follow up with Neurology, had extensive workup at , recommended to follow up with there. FINAL DIAGNOSES: 1. Change in mental status, could be secondary to metabolic encephalopathy secondary to his dementia and stroke 6 months ago.No new stroke. 2. Previous stroke 6 months ago, which has left hemiparesis. 3. History of seizures, on 2 medications to control. 4. Silent aspiration. The patient is on J-tube feedings. 5. Coronary artery disease. 6. Hypertension. 7. Hyperlipidemia. 8. History of prostate cancer, had a treatment in the past at . PLAN: At this time, he was discharged back to [facility] where he has been a resident now and follow up with PT, OT, Speech as well as continue tube feedings. Follow with Neurology. CANDACE AHUMADA MD DR: BARB/keshav JOB#: [id number] / [id number]
== END 2017-11-11 16:40 | DRG 100 ==
LOC: ER 15:20 → 1 WEST ICU 17:21 → 2 SOUTH 11-08 07:40
PROVIDERS: ADMIT Internal Medicine; ATTEND Internal Medicine
DX: G40.909 Epilepsy, unspecified, not intractable, without status epilepticus (principal); G93.41 Metabolic encephalopathy; E11.9 Type 2 diabetes mellitus without complications; I69.354 Hemiplegia and hemiparesis following cerebral infarction affecting left non-dominant side; G83.84 Todd's paralysis (postepileptic); E78.5 Hyperlipidemia, unspecified; E78.00 Pure hypercholesterolemia, unspecified; F41.9 Anxiety disorder, unspecified; F32.9 Major depressive disorder, single episode, unspecified; R47.1 Dysarthria and anarthria; E55.9 Vitamin D deficiency, unspecified; I25.10 Atherosclerotic heart disease of native coronary artery without angina pectoris; I10 Essential (primary) hypertension; Z85.46 Personal history of malignant neoplasm of prostate; Z83.3 Family history of diabetes mellitus; Z82.3 Family history of stroke; Z82.49 Family history of ischemic heart disease and other diseases of the circulatory system
CPT/HCPCS: 36415; 70450; 70553; 71010; 74230; 80048; 80053; 80061; 80177; 80307; 81001; 82306; 82607; 82962; 83036; 84443; 85025; 85610; 85730; 87086; 87641; 93005; 94640; 94760; 95816; C9113; J1650; J1815; J1953; J7620; J7626; 92526; 92611; 99285-25; G0479